=== PATIENT | female | born 1955 | race African-American/Black ===

== ENCOUNTER 2018-10-04 21:50 | Inpatient (IN) | payer OTHER ==
--- OUTSIDE RECORDS SUMMARY | 2018-10-04 21:52 | XMS REPORT | Clinical Summary ---
:1955 Author Organization [facility] Address [address] [place] [address] Care Team Providers Name Role Phone Ted Wall MD Primary Care Provider Allergies Active Allergy Reactions Severity Noted Date Comments Dye 08/25/2017 Contrast dye Morphine 08/25/2017 Medications Medication Sig Dispensed Refills Start Date End Date Status aspirin (ECOTRIN) 81 MG TAKE 2 TABLETS 3 08/19/2017 Active enteric coated tablet (162 MG) BY MOUTH DAILY atenolol (TENORMIN) 50 Take 50 mg by 0 08/11/2017 Active MG tablet mouth every morning. atorvastatin (LIPITOR) Take 40 mg by 0 07/24/2017 Active 40 MG tablet mouth once daily. SYMBICORT 160-4.5 INHALE 2 PUFFS 0 08/07/2017 Active mcg/actuation inhaler PO BID clopidogrel (PLAVIX) 75 0 08/24/2017 Active mg tablet clonIDINE (CATAPRES) 0.1 TK 1 T PO TID 0 06/18/2017 Active MG tablet gabapentin (NEURONTIN) TK 1 C PO D 0 07/03/2017 Active 300 mg capsule cyclobenzaprine TAKE ONE (1) 0 07/30/2017 Active (FLEXERIL) 10 mg tablet TABLET BY MOUTH TWICE DAILY. hydrALAZINE (APRESOLINE) TK 1 T PO TID 1 05/25/2017 Active 50 MG tablet HYDROcodone-acetaminophe TAKE ONE (1) 0 07/30/2017 Active n (NORCO) 10-325 mg per TABLET BY MOUTH tablet FOUR TIMES DAILY. NOVOLOG 100 unit/mL INJECT 35 UNITS 3 06/03/2017 Active injection UNDER THE SKIN TID BEFORE EACH MEAL LANTUS 100 unit/mL INJECT 30 UNITS 0 06/04/2017 Active injection (vial) SQ BID olmesartan (BENICAR) 40 Take 40 mg by 0 07/27/2017 Active MG tablet mouth once daily. Active Problems Problem Noted Date Trigger finger, right middle finger 08/25/2017 Social History Tobacco Use Types Packs/Day Years Used Date Never Smoker Smokeless Tobacco: Never Used Alcohol Use Drinks/Week oz/Week Comments No Sex Assigned at Date Recorded Not on file Job Start Date Occupation Industry Not on file Not on file Not on file Travel History Travel Start Travel End No recent travel history available. Last Filed Vital Signs Not on file Plan of Treatment Health Maintenance Due Date Last Done Comments CERVICAL CANCER SCREENING 1974 BREAST CANCER SCREENING 2003 COLON CANCER SCREENING 2003 SHINGRIX VACCINE (1 of 2) 2003 ZOSTER VACCINE 2013 INFLUENZA VACCINE 06/02/2018 PNEUMOCOCCAL POLYSACCHARIDE VACCINE AGE 65 AND OVER 2018 PNEUMOCOCCAL-13 2018 Results Not on fileafter 10/03/2017 Insurance Payer Benefit Plan / Group Subscriber ID Type Phone Address [facility] xxxxxxxxx HMO ([place]) [address] [address] Advance Directives Patient has advance care planning documents on file. For more information, please contact:[place] [address]
[2018-10-04] MEDS ORDERED: ALBUTEROL 2.5 MG/3 ML NEB SOL ONE (22:51)
[2018-10-04] MEDS ORDERED: KETOROLAC 30 MG/ML INJ ONE (22:51)
[2018-10-04] MEDS ORDERED: FAMOTIDINE 20 MG/2 ML VIAL IV ONE (22:51)
[2018-10-04] MEDS ORDERED: NA CHLORIDE 0.9% 1,000 ML ONE (22:51)
[2018-10-04 22:55] LABS: Absolute Lymphocytes (CBC) 3.1 K/uL (0.7-4.9); Absolute Monocytes 0.7 K/uL (0.1-1.3); Absolute Neutrophil 3.3 K/uL (1.8-8.0); Basophils % 0.8 % (0-1.3); Eosinophils % 5.7 % (0-4.4); Lymphocytes % 40.8 % (15.3-44.8); MCH 26.7 pg (27.0-35.0); MPV 8.1 fL (7.6-11.3); RBC Red Blood Cell Count 5.01 M/uL (3.86-4.86)
[2018-10-04 22:56] LABS: Protime INR 1.14
[2018-10-04 23:11] LABS: ALT/SGPT 25 U/L (12-78); AST/SGOT 25 U/L (15-37); Albumin 3.4 g/dL (3.4-5.0); Alkaline Phosphatase 140 U/L (45-117); BUN Blood Urea Nitrogen 13 mg/dL (7-18); Bicarbonate 25 mmol/L (21-32); Bilirubin Direct < 0.1 mg/dL (0-0.2); Bilirubin Total 0.3 mg/dL (0.2-1.0); Glucose Level 152 mg/dL (74-106); Lipase 103 U/L (73-393); NT PRO-BNP 479 pg/mL (<125); Potassium 4.2 mmol/L (3.5-5.1); Protein, Total 7.2 g/dL (6.4-8.2); Sodium Level 136 mmol/L (136-145); Troponin (Emerg Dept Use Only) 0.04 ng/mL (0.0-0.045)
--- NOTE | 2018-10-05 00:36 | ER ---
Nurse's Notes [facility] Name: Jose F Esipnoza Age: 63 yrs Sex: Female : 1955 Arrival Date: 10/04/2018 Time: 21:51 Bed 26 Private MD: Ted Zendejas R Diagnosis: acute chest pain;shortness of breath;acute abdominal pain;large midline abdominal wall incisional seroma Presentation: 10/04 22:03 Presenting complaint: Patient states: Burning in chest that is worse after eating. Also aj reports nausea and vomiting. Transition of care: patient was not received from another setting of care. Onset of symptoms was October 02, 2018. Risk Assessment: Do you want to hurt yourself or someone else? Patient reports no desire to harm self or others. Initial Sepsis Screen: Does the patient meet any 2 criteria? No. Patient's initial sepsis screen is negative. Does the patient have a suspected source of infection? No. Patient's initial sepsis screen is negative. Care prior to arrival: None. 22:03 Method Of Arrival: Ambulatory aj 22:03 Acuity: QUANG 3 aj Triage Assessment: 22:04 General: Appears in no apparent distress. comfortable, Behavior is calm, cooperative, aj appropriate for age. Pain: Complains of pain in chest and epigastric area. Neuro: Level of Consciousness is awake, alert, obeys commands, Oriented to person, place, time, situation, Appropriate for age. Cardiovascular: Reports chest pain, nausea, Capillary refill < 3 seconds in bilateral fingers Patient's skin is warm and dry. Respiratory: Reports cough that is Airway is patent Respiratory effort is even, unlabored, Respiratory pattern is regular, symmetrical. GI: Reports epigastric pain, nausea, vomiting. Derm: Skin is intact, is healthy with good turgor, Skin is pink, warm \T\ dry. normal. Historical: - Allergies: 22:04 Iodinated Contrast Media - IV Dye; aj 22:04 Morphine; aj - Home Meds: 22:55 aspirin 81 mg Oral chew 1 tab once daily [Active]; atenolol 25 mg Oral tab 1 tab once mg2 daily [Active]; atorvastatin 40 mg Oral tab 1 tab once daily [Active]; clonidine HCl 0.1 mg Oral tab 1 tab 3 times per day [Active]; hydralazine 50 mg Oral tab [Active]; Lantus 100 unit/mL Sub-Q soln 30 unit twice a day [Active]; levalbuterol HCl inhalation [Active]; Novolog 100 unit/mL Sub-Q soln 35 unit three times a day [Active]; olmesartan Oral 1 tab [Active]; ondansetron HCl 4 mg Oral tab [Active]; Plavix 75 mg Oral tab 1 tab once daily [Active]; potassium chloride 10 mEq Oral cpER 1 cap 2 times per day [Active]; Tessalon Perles 100 mg Oral cap 1 cap 3 times per day [Active]; - PMHx: 22:04 Asthma; CVA; Diabetes - NIDDM; Hypertension; aj - PSHx: 22:04 Hysterectomy; Hernia repair; aj - Immunization history:: Adult Immunizations up to date. - Social history:: Smoking status: Patient/guardian denies using tobacco. - Ebola Screening: : Patient negative for fever greater than or equal to 101.5 degrees Fahrenheit, and additional compatible Ebola Virus Disease symptoms Patient denies exposure to infectious person Patient denies travel to an Ebola-affected area in the 21 days before illness onset No symptoms or risks identified at this time. - Family history:: not pertinent. - Hospitalizations: : No recent hospitalization is reported. Screenin:38 Abuse screen: Denies threats or abuse. Denies injuries from another. Nutritional mg2 screening: No deficits noted. Tuberculosis screening: No symptoms or risk factors identified. Fall Risk IV access (20 points). Assessment: 22:38 General: Appears in no apparent distress. comfortable, Behavior is calm, cooperative. mg2 Pain: Complains of pain in abdomen and chest and epigastric area Pain does not radiate. Pain currently is 7 out of 10 on a pain scale. Quality of pain is described as aching, Pain began gradually, 2-3 days ago. Is intermittent, Alleviated by medications, rest. Neuro: Level of Consciousness is awake, alert, obeys commands, Oriented to person, place, time, situation. Cardiovascular: Capillary refill < 3 seconds Patient's skin is warm and dry. Respiratory: Airway is patent Respiratory effort is even, unlabored, Respiratory pattern is regular, symmetrical, Breath sounds with wheezes bilaterally. GI: Abdomen is round non-distended, Reports lower abdominal pain, upper abdominal pain. : No signs and/or symptoms were reported regarding the genitourinary system. EENT: No deficits noted. Derm: Skin is intact, is healthy with good turgor, Skin is pink, warm \T\ dry. normal. Musculoskeletal: No deficits noted. Vital Signs: 22:04 BP 162 / 75; Pulse 89; Resp 22; Temp 98.9; Pulse Ox 100% on R/A; Weight 126.1 kg; aj Height 5 ft. 6 in. (167.64 cm); 23:12 BP 167 / 83; Pulse 63; Resp 18; Pulse Ox 100% on R/A; Pain 4/10; mg2 12/ 00:22 BP 159 / 78; Pulse 65; Resp 18; Pulse Ox 100% on R/A; Pain 0/10; mg2 / 22:04 Body Mass Index 44.87 (126.10 kg, 167.64 cm) ED Course: 10/04 21:51 Patient arrived in ED. am2 21:52 Ted Zendejas MD is Private Physician. am2 22:03 Rea Vieira, RN is Primary Nurse. aj 22:04 Triage completed. aj 22:04 Ilia Knowles MD is Attending Physician. wa 22:04 Arm band placed on left wrist. Patient placed in an exam room. aj 22:14 Benton Latif, ORLY is Primary Nurse. mg2 22:38 No provider procedures requiring assistance completed. Inserted saline lock: 20 gauge mg2 in left wrist, using aseptic technique. Blood collected. 22:40 Patient has correct armband on for positive identification. laboratory monitor on. Pulse mg2 ox on. NIBP on. Door closed. Warm blanket given. 22:51 XRAY Chest Pa And Lat (2 Views) In Process Unspecified. EDMS 22:52 CT Abd/Pelvis - Without Cont In Process Unspecified. EDMS 22:55 Patient maintains SpO2 saturation greater than 95% on room air. mg2 23:04 US Abdomen Limited In Process Unspecified. EDMS 12 00:33 Ted Zendejas MD is Hospitalizing Provider. wa 01:32 Patient admitted, IV remains in place. mg2 Administered Medications: 10/04 23:11 Drug: Pepcid 20 mg Route: IVP; Site: left wrist; mg2 10/05 00:22 Follow up: Response: No adverse reaction; Marked relief of symptoms mg2 10/04 23:11 Drug: TORadol 30 mg Route: IVP; Site: left wrist; mg2 10/05 00:22 Follow up: Response: No adverse reaction; Marked relief of symptoms mg2 10/04 23:12 Drug: NS 0.9% 1000 ml Route: IV; Rate: 1 bolus; Site: left wrist; mg2 10/05 00:22 Follow up: Response: No adverse reaction; IV Status: Completed infusion mg2 10/04 23:12 Drug: Albuterol 2.5 mg Route: Inhalation; mg2 10/05 00:21 Follow up: Response: No adverse reaction; Marked relief of symptoms mg2 Outcome: 00:35 Decision to Hospitalize by Provider. wa 01:32 Admitted to Med/surg accompanied by tech, via stretcher, room 230, with oxygen, with mg2 chart, Report called to ORLY Torres 01:32 Condition: stable 01:32 Instructed on the need for admit, Demonstrated understanding of instructions. 01:32 Patient left the ED. mg2 Signatures: Dispatcher [employer] EDRea Naqvi, Rea Mclean RN am2 Ilia Knowles MD MD wa Gardose, Michele, RN RN mg2
--- NOTE | 2018-10-05 00:36 | EDPHYS ---
Physician Documentation [facility] Name: Jose F Espinoza Age: 63 yrs Sex: Female : 1955 Arrival Date: 10/04/2018 Time: 21:51 Bed 26 Private MD: Ted Zendejas R ED Physician Ilia Knowles HPI: 10/05 00:00 This 63 yrs old Black Female presents to ER via Ambulatory with complaints of Chest wa Pain. 00:00 The patient or guardian reports chest pain that is located primarily in the substernal wa area, epigastric area, L side. Onset: 2 day(s) ago, wax and wane. The pain does not radiate. Associated signs and symptoms: Pertinent positives: abdominal pain, nausea, vomiting, Pertinent negatives: diaphoresis, dizziness. The chest pain is described as burning. Duration: The patient or guardian reports a single episode, that is still ongoing, and unchanged, wax and wane. Modifying factors: The symptoms are alleviated by nothing. the symptoms are aggravated by nothing. Severity of pain: At its worst the pain was moderate in the emergency department the pain is unchanged. The patient has not experienced similar symptoms in the past. The patient has not recently seen a physician. also complain of "knot" on stomach wall. Historical: - Allergies: 10/04 22:04 Iodinated Contrast Media - IV Dye; aj 22:04 Morphine; aj - Home Meds: 22:55 aspirin 81 mg Oral chew 1 tab once daily [Active]; atenolol 25 mg Oral tab 1 tab once mg2 daily [Active]; atorvastatin 40 mg Oral tab 1 tab once daily [Active]; clonidine HCl 0.1 mg Oral tab 1 tab 3 times per day [Active]; hydralazine 50 mg Oral tab [Active]; Lantus 100 unit/mL Sub-Q soln 30 unit twice a day [Active]; levalbuterol HCl inhalation [Active]; Novolog 100 unit/mL Sub-Q soln 35 unit three times a day [Active]; olmesartan Oral 1 tab [Active]; ondansetron HCl 4 mg Oral tab [Active]; Plavix 75 mg Oral tab 1 tab once daily [Active]; potassium chloride 10 mEq Oral cpER 1 cap 2 times per day [Active]; Tessalon Perles 100 mg Oral cap 1 cap 3 times per day [Active]; - PMHx: 22:04 Asthma; CVA; Diabetes - NIDDM; Hypertension; aj - PSHx: 22:04 Hysterectomy; Hernia repair; aj - Immunization history:: Adult Immunizations up to date. - Social history:: Smoking status: Patient/guardian denies using tobacco. - Ebola Screening: : Patient negative for fever greater than or equal to 101.5 degrees Fahrenheit, and additional compatible Ebola Virus Disease symptoms Patient denies exposure to infectious person Patient denies travel to an Ebola-affected area in the 21 days before illness onset No symptoms or risks identified at this time. - Family history:: not pertinent. - Hospitalizations: : No recent hospitalization is reported. ROS: 10/05 00:02 Constitutional: Negative for fever, chills, and weight loss, Eyes: Negative for injury, wa pain, redness, and discharge, ENT: Negative for injury, pain, and discharge, Neck: Negative for injury, pain, and swelling, Back: Negative for injury and pain, : Negative for injury, bleeding, discharge, and swelling, MS/Extremity: Negative for injury and deformity, Skin: Negative for injury, rash, and discoloration, Neuro: Negative for headache, weakness, numbness, tingling, and seizure, Psych: Negative for depression, anxiety, suicide ideation, homicidal ideation, and hallucinations. Cardiovascular: Positive for chest pain, Negative for edema, orthopnea, palpitations, paroxysmal nocturnal dyspnea. Respiratory: Positive for wheezing, Negative for cough. Abdomen/GI: Positive for abdominal pain. All other systems are negative. Exam: 00:03 Constitutional: This is a well developed, well nourished patient who is awake, alert, wa and in no acute distress. Head/Face: Normocephalic, atraumatic. Eyes: Pupils equal round and reactive to light, extra-ocular motions intact. Lids and lashes normal. Conjunctiva and sclera are non-icteric and not injected. Cornea within normal limits. Periorbital areas with no swelling, redness, or edema. ENT: Nares patent. No nasal discharge, no septal abnormalities noted. Tympanic membranes are normal and external auditory canals are clear. Oropharynx with no redness, swelling, or masses, exudates, or evidence of obstruction, uvula midline. Mucous membranes moist. Neck: Trachea midline, no thyromegaly or masses palpated, and no cervical lymphadenopathy. Supple, full range of motion without nuchal rigidity, or vertebral point tenderness. No Meningismus. Chest/axilla: Normal chest wall appearance and motion. Nontender with no deformity. No lesions are appreciated. Back: No spinal tenderness. No costovertebral tenderness. Full range of motion. Skin: Warm, dry with normal turgor. Normal color with no rashes, no lesions, and no evidence of cellulitis. MS/ Extremity: Pulses equal, no cyanosis. Neurovascular intact. Full, normal range of motion. Neuro: Awake and alert, GCS 15, oriented to person, place, time, and situation. Cranial nerves II-XII grossly intact. Motor strength 5/5 in all extremities. Sensory grossly intact. Cerebellar exam normal. Normal gait. Psych: Awake, alert, with orientation to person, place and time. Behavior, mood, and affect are within normal limits. 00:03 Cardiovascular: Rate: normal, Rhythm: regular, Pulses: no pulse deficits are appreciated, Heart sounds: normal, Edema: is not appreciated, JVD: is not appreciated. 00:03 Respiratory: the patient does not display signs of respiratory distress, Respirations: normal, Breath sounds: wheezing: expiratory that is mild, is heard diffusely. 00:03 Abdomen/GI: Inspection: abdomen appears normal, Bowel sounds: normal, Palpation: soft, in all quadrants, moderate abdominal tenderness, in the epigastric area and R side mid abd wall. Vital Signs: 10/04 22:04 BP 162 / 75; Pulse 89; Resp 22; Temp 98.9; Pulse Ox 100% on R/A; Weight 126.1 kg; aj Height 5 ft. 6 in. (167.64 cm); 23:12 BP 167 / 83; Pulse 63; Resp 18; Pulse Ox 100% on R/A; Pain 4/10; mg2 10/05 00:22 BP 159 / 78; Pulse 65; Resp 18; Pulse Ox 100% on R/A; Pain 0/10; mg2 10/04 22:04 Body Mass Index 44.87 (126.10 kg, 167.64 cm) aj MDM: 10/04 22:04 Patient medically screened. tn 10/05 00:04 Differential diagnosis: acute myocardial infarction, acute pericarditis, coronary wa artery disease congestive heart failure cholecystitis, Cholelithiasis costochondritis, gastritis, pancreatitis, peptic ulcer disease. 00:27 Data reviewed: vital signs, nurses notes, lab test result(s), EKG, radiologic studies. tn Test interpretation: by ED physician or midlevel provider: EKG: HR 67. multiple PVCs> LAD. incomplete RBBB. lateral T wave inversions noted. consider ischemia. nml troponin. elevated glucose. nml CXR. CT abd/pelvis: large midline incisional seroma 4.9x7.9x13 cm. . Response to treatment: the patient's symptoms have mildly improved after treatment. Physician consultation: Ted Zendejas MD. Admission orders: after a detailed discussion of the patient's condition and case, the admit orders are written by me. ED course: abd pain improved. however on reassessment pt noted wheezing and mildly SOB even after a neb treatment. consider PE. pt allergic to IV dye. will admit for further eval. will obtain VQ scan. will obtain gen surg consult for abd wall seroma. 10/04 22:28 Order name: BMP; Complete Time: 23:42 tn 10/04 22:28 Order name: CBC with Diff; Complete Time: 23:42 tn 10/04 22:28 Order name: Hepatic Function; Complete Time: 23:43 tn 10/04 22:28 Order name: Lipase; Complete Time: 23:43 tn 10/04 22:28 Order name: NT PRO-BNP; Complete Time: 23:43 tn 10/04 22:28 Order name: PT-INR; Complete Time: 23:43 tn 10/04 22:28 Order name: XRAY Chest Pa And Lat (2 Views) tn 10/04 22:28 Order name: Troponin (emerg Dept Use Only); Complete Time: 23:43 tn 10/04 22:28 Order name: US Abdomen Limited tn 10/04 22:28 Order name: CT Abd/Pelvis - Without Cont tn 10/04 22:28 Order name: EKG; Complete Time: 22:29 tn 10/04 22:28 Order name: Cardiac monitoring; Complete Time: 22:38 tn 10/04 22:28 Order name: EKG - Nurse/Tech; Complete Time: 22:38 tn 10/04 22:28 Order name: IV Saline Lock; Complete Time: 22:38 tn 10/04 22:28 Order name: Labs collected and sent; Complete Time: 22:38 tn 10/04 22:28 Order name: O2 Sat Monitoring; Complete Time: 22:38 tn Administered Medications: 10/04 23:11 Drug: Pepcid 20 mg Route: IVP; Site: left wrist; mg2 10/05 00:22 Follow up: Response: No adverse reaction; Marked relief of symptoms mg2 10/04 23:11 Drug: TORadol 30 mg Route: IVP; Site: left wrist; mg2 10/05 00:22 Follow up: Response: No adverse reaction; Marked relief of symptoms mg2 10/04 23:12 Drug: NS 0.9% 1000 ml Route: IV; Rate: 1 bolus; Site: left wrist; mg2 10/05 00:22 Follow up: Response: No adverse reaction; IV Status: Completed infusion mg2 10/04 23:12 Drug: Albuterol 2.5 mg Route: Inhalation; mg2 10/05 00:21 Follow up: Response: No adverse reaction; Marked relief of symptoms mg2 Disposition: 10/05/18 00:35 Hospitalization ordered by Ted Zendejas for Inpatient Admission. Preliminary diagnosis are acute chest pain, shortness of breath, acute abdominal pain, large midline abdominal wall incisional seroma. - Bed requested for Telemetry/MedSurg (Inpatient). - Status is Inpatient Admission. mg2 - Condition is Stable. - Problem is an acute exacerbation. - Symptoms have improved. UTI on Admission? No Signatures: Dispatcher [employer] EDMS Rea Vieira RN RN aj Garcia, Cindy, RN RN Ilia Knowles MD MD wa Gardose, Michele, RN RN mg2 Corrections: (The following items were deleted from the chart) 00:46 00:35 Hospitalization Ordered by Ted Zendejas MD for Inpatient Admission. Preliminary cg diagnosis is acute chest pain; shortness of breath; acute abdominal pain; large midline abdominal wall incisional seroma. Bed requested for Telemetry/MedSurg (Inpatient). Status is Inpatient Admission. Condition is Stable. Problem is an acute exacerbation. Symptoms have improved. UTI on Admission? No. tn 00:52 00:46 10/05/2018 00:35 Hospitalization Ordered by Ted Zendejas MD for Inpatient cg Admission. Preliminary diagnosis is acute chest pain; shortness of breath; acute abdominal pain; large midline abdominal wall incisional seroma. Bed requested for Telemetry/MedSurg (Inpatient). Status is Inpatient Admission. Condition is Stable. Problem is an acute exacerbation. Symptoms have improved. UTI on Admission? No. cg 01:32 00:52 10/05/2018 00:35 Hospitalization Ordered by Ted Zendejas MD for Inpatient mg2 Admission. Preliminary diagnosis is acute chest pain; shortness of breath; acute abdominal pain; large midline abdominal wall incisional seroma. Bed requested for Telemetry/MedSurg (Inpatient). Status is Inpatient Admission. Condition is Stable. Problem is an acute exacerbation. Symptoms have improved. UTI on Admission? No. cg
[2018-10-05] MEDS ORDERED: ONDANSETRON 4 MG/2 ML VIAL IV PRN (00:44)
[2018-10-05] MEDS ORDERED: ACETAMINOPHEN 500 MG TAB PO PRN (00:44)
[2018-10-05 01:46] VITALS: BMI 46.2
--- NOTE | 2018-10-05 06:28 | RAD REPORT ---
EXAM DESCRIPTION: CT - Abdomen Pelvis Wo Contrast - 10/04/2018 10:52 pm CLINICAL HISTORY: Abdominal pain. A preliminary report was provided at the time of the study and reviewed prior to final report. COMPARISON: None. TECHNIQUE: Axial [address] imaging of the abdomen and pelvis was performed without IV contrast. No IV contrast was given because of allergy, abnormal renal function, patient refusal or physician re quest. No oral contrast administered. All CT scans are performed using dose optimization technique as appropriate and may include automated exposure control or mA/KV adjustment according to patient size. FINDINGS: No suspicious findings in the lung bases. The liver, spleen and pancreas show no suspicious findings on non-contrast imaging. Gallbladder and b iliary tree are also without suspicious finding. No hydronephrosis or suspicious renal mass. No significant adrenal finding. Isodense renal masses an d pyelonephritis cannot be excluded in the absence of IV contrast. Urinary bladder is contracted. [place] javed is absent. Ovaries are absent or atrophic. No adnexal mass. No dilated bowel loops or bowel wall thickening. No free air, free fluid or inflammatory stranding. N o peritoneal or retroperitoneal mass or bulky lymphadenopathy. No omental thickening. There is a 13 x 9 x 5 cm oval fluid collection in the deep subcutaneous fatty tissues of the midline abdomen. This is at the umbilical level abutting the anterior abdominal wall. No intraperitoneal exte nsion. This has a thick rim. A small soft tissue mass component is seen along the anterior right infe rior margin. This is mostly homogeneous fluid attenuation. No air density. There is an nonspecific st randing in the subcutaneous fat superior and right lateral to the mass. This is most likely a chronic postoperative seroma. The apparent solid component could be contracted blood products. No intraperit de or retroperitoneal fluid collections. No suspicious bony findings. Dense vascular calcifications are present. IMPRESSION: A 13 x 9 x 5 cm fluid collection is seen in the deep subcutaneous fatty tissues at the u mbilicus. No intraperitoneal extension. Chronic postoperative seroma is favored over abscess. No acute intraperitoneal or retroperitoneal process. Full assessment is limited is the absence of IV contrast.
--- NOTE | 2018-10-05 06:33 | RAD REPORT ---
EXAM DESCRIPTION: RAD - Chest Pa And Lat (2 Views) - 10/04/2018 10:53 pm CLINICAL HISTORY: Chest pain COMPARISON: October 2017 TECHNIQUE: PA and lateral views of the chest were obtained. FINDINGS: The lungs are normal volume. No focal mass or consolidation. Interstitial markings are fra ctionally increased over the comparison study. A minimal interstitial edema or infiltrate would be po ssible. Heart size is normal and central vasculature is within normal limits. No pleural effusion or pneumothorax seen. No acute bony finding noted. No aortic abnormality. IMPRESSION: No focal mass or consolidation. Minimal increase in interstitial markings could be a mild infiltrate or edema.
--- NOTE | 2018-10-05 06:36 | RAD REPORT ---
EXAM DESCRIPTION: US - Abdomen Exam Limited - 10/04/2018 11:04 pm CLINICAL HISTORY: Abdominal pain COMPARISON: Ultrasound 2015. FINDINGS: No mobile gallstones or significant quantity of sludge identifiable. The fundus there is a 7 millimeter echogenic focus adherent to the wall. No posterior acoustic shadowing. This is probably a gallbladder polyp. There is no wall thickening or pericholecystic fluid. No common duct stone or biliary tree dilatation identified. IMPRESSION: No gallstones confirmed and no measurable quantity of sludge. Approximately 7 millimeter echogenic focus near the fundus. This is most likely a polyp and has not c hanged in size since 2015.
--- NOTE | 2018-10-05 07:06 | EKG ---
Test Date: 2018-10-04 Test Time: 22:20:05 Television Presenter: MEASUREMENT RESULTS: Intervals: Rate: 67 [place]: 170 QRSD: 100 QT: 452 QTc: 477 [place]: P: 49 [place]: 170 QRS: -32 T: 167 INTERPRETIVE STATEMENTS: Sinus rhythm with frequent premature ventricular complexes Left axis deviation Voltage criteria for left ventricular hypertrophy T wave abnormality, consider lateral ischemia Prolonged QT Abnormal ECG Compared to ECG 10/24/2017 21:32:37 Ventricular premature complex(es) now present T-wave abnormality now present Possible ischemia now present Prolonged QT interval now present Sinus tachycardia no longer present Early repolarization no longer present Myocardial infarct finding no longer present Electronically Signed On 10-05-18 07:05:18 SEAM HAMMERER by Fabrice Clark
[2018-10-05] MEDS ORDERED: GLUCAGON 1 MG/VIAL IM PRN (08:29)
[2018-10-05] MEDS ORDERED: D50W 25 GM/50 ML SYRINGE IV PRN (08:29)
[2018-10-05] MEDS ORDERED: ASPIRIN EC 81 MG TAB PO SCH (09:00)
[2018-10-05] MEDS: FUROSEMIDE 40 MG TABLET PO SCH (09:57)
[2018-10-05] MEDS: cloNIDine HCl 0.1 MG TAB PO SCH ×3 (09:57→21:08)
[2018-10-05] MEDS: ASPIRIN 81 MG CHEWABLE TABLET PO SCH (09:57)
[2018-10-05] MEDS: INSULIN GLARGINE 100 UNITS/ML SQ SCH ×2 (09:57→21:09)
[2018-10-05] MEDS: CLOPIDOGREL 75 MG TABLET PO SCH (09:58)
[2018-10-05] MEDS: ATENOLOL 25 MG TAB PO SCH (09:58)
[2018-10-05] MEDS: INSULIN -REGULAR HUMAN 50 UNIT/0.5 ML ML SQ SCH ×3 (11:52→21:09)
[2018-10-05 12:42] LABS: Urine Appearance CLEAR; Urine Blood NEGATIVE (NEG); Urine Color DK YELLOW; Urine Glucose NEGATIVE (NEG); Urine Protein 1+ (NEG); Urine Specific Gravity >=1.030 (1.005-1.030); Urine pH 5.5 (5.0-7.0)
[2018-10-05 12:54] LABS: Urine Microscopic Reflex ORDER UMIC
[2018-10-05 13:22] LABS: Urine Bacteria <20 /HPF (<20); Urine Culture Reflex Order NOT NEEDED; Urine RBC <5 /HPF (NONE SEEN)
[2018-10-05 13:23] LABS: Calcium Oxalate Crystals- Ur FEW (NONE SEEN)
[2018-10-05] MEDS: HYDRALAZINE HCL 25 MG TABLET PO SCH ×3 (13:40→21:08)
[2018-10-05 13:56] LABS: Urine Bilirubin POSITIVE (NEG)
[2018-10-05] MEDS: ALBUTEROL 2.5 MG/3 ML NEB SOL NEB SCH ×2 (14:07→20:35)
[2018-10-05 16:50] VITALS: O2SAT 98
[2018-10-05] MEDS ORDERED: ATORVASTATIN 40 MG TAB PO SCH (21:00)
[2018-10-06] MEDS: ALBUTEROL 2.5 MG/3 ML NEB SOL NEB SCH ×2 (02:00→08:09)
--- NOTE | 2018-10-06 03:09 | HP ---
Date of Admission: 10/04/2018 Chief Complaint: Heartburn after eating, nausea, and vomiting. History Of Present Illness: A 63-year-old female was brought to the emergency room because of epigas tric burning pain after eating. The patient had workup done in the emergency room. The patient had no evidence of myocardial injury. However, her CAT scan showed seroma. The patient claims that she had that before and it was drained. The patient denies any history of diarrhea. No history of incre ased shortness of breath. Past Medical History: Positive for type 2 diabetes requiring insulin, history of CVA, history of ast hma, hypertension. Past Surgical History: Positive for hernia repair and hysterectomy. Allergies: IODINE DYE AND MORPHINE. Home Medicines: Please refer to the chart. Physical Examination: General: Revealed 63-year-old female, alert for her age. HEENT: Negative. Neck: Supple. JVD negative. Chest: Few scattered wheezes. Heart: Regular. Abdomen: Mild epigastric tenderness. Bowel sounds present. Extremities: No edema. Laboratory: White count normal. CAT scan of abdomen, evidence of seroma. Ultrasound of the abdomen negative. Chest x-ray showed no evidence of pneumonia, increased interstitial markings noted. Assessment: 1.Nausea, vomiting, and epigastric burning, possible peptic ulcer disease versus gastritis. 2.Seroma, recurrent. 3.Asthma. 4.Type 2 diabetes requiring insulin. 5.Hypertension. 6.Old cerebrovascular accident. Plan: The patient looks stable and surgical consultation has been asked for to see what to do with t he seroma. The patient meanwhile will be restarted on her medications and insulin sliding will be in stituted. She will be started on Protonix. KATY/YOSELYN Voice ID: [id number]
[2018-10-06 06:51] LABS: Absolute Lymphocytes (CBC) 2.5 K/uL (0.7-4.9); Absolute Monocytes 0.5 K/uL (0.1-1.3); Absolute Neutrophil 2.4 K/uL (1.8-8.0); Basophils % 0.5 % (0-1.3); Eosinophils % 5.9 % (0-4.4); Hematocrit 35.4 % (36.0-45.0); Lymphocytes % 42.7 % (15.3-44.8); MCH 26.4 pg (27.0-35.0); MCV 79.5 fL (80-100); MPV 7.9 fL (7.6-11.3); Monocytes % 9.1 % (3.3-12.3); RBC Red Blood Cell Count 4.45 M/uL (3.86-4.86)
[2018-10-06] MEDS ORDERED: PANTOPRAZOLE 40MG TABLET PO SCH (07:30)
[2018-10-06 07:31] LABS: Potassium 4.1 mmol/L (3.5-5.1)
--- NOTE | 2018-10-06 08:36 | CON ---
Date of Consultation: 10/04/2018 Diagnosis: Chest pain. History Of Present Illness: This is the case of a 63-year-old patient, came to us with epigastric an d chest pain. The patient was admitted with the diagnosis of chest pain and possible also gallbladde r disease. The patient states that she has also burning sensation in the epigastric region, sometime s it goes to her back but also goes to her left chest. There is no dysuria, hematuria, hematochezia, or melena. No recent traveling out of the country. No family members are sick at home. She was al so found on the CAT scan to have a fluid collection, seroma, that she claims has been addressed sever al times, but it happened once again, seroma in abdominal wall after hernia repair many ye ars ago. Surgical consult was obtained to address 2 issues; the gallbladder disease if any and the a bdominal wall seroma. Past Medical History: Asthma, CVA, obesity, hyp-ghenlef-pqicheoci diabetes, hypertension. Past Surgical History: Includes hysterectomy and hernia repair. The patient has a midline incision done a long time ago. Social Habits: She does not smoke. She does not drink alcohol. Allergies: IODINE IV AND MORPHINE. Family History: Noncontributory. Review of Systems: Ten points otherwise unremarkable. Physical Examination: General: The patient is awake and alert. HEENT: Pupils are equal and reactive. Anicteric. Neck: Supple. Chest: Clear. Abdomen: Soft and depressible. No guarding or rebound. The patient has a midline incision. No darin lulitis. No hernia is palpated. the CAT scan shows but no cellulitis present in that are a to suggest any cellulitis or infection. Pelvic/Rectal: Deferred. Extremities: Good capillary refill. Laboratory Data: Blood work shows WBC count of 7.5, INR of 1.4, GFR 60, alkaline phosphatase 140. C AT scan of abdomen and pelvis is interpreted by Dr. Acosta as a 13 x 9 x 5 cm seroma; the patient de scribed as being addressed before twice, but recurred once again. The exact surgery done before is u nknown. The patient also has an ultrasound which shows no gallstones and no sludge, although the pos sibility of a polyp is there, though has not changed since 2015. Assessment: This is a 63-year-old patient, came here with chest pain, also epigastric pain, morbid o besity. There are few findings on her. The ultrasound does not show any acute process or gallstones or sludge; maybe something a polyp in that area, found in 2015 apparently and has not changed. Obvi ously, for us to have a complete biopsy of that, we will have the gallbladder to be removed electivel y. If an acute process is wanted to be ruled out, then a HIDA scan might help just to see the functi on, not to clarify the findings of 2015. Concerning the abdominal wall, she has a chronic seroma, it has been drained several times. Apparently, she had surgery many years ago, hernia surgery; the exa ct intervention is unknown by us; I do not know if she has mesh there or not. Apparently, it has bee n drained several times. If she is going to address that issue electively, then she may need a debri gayla of that cavity and most likely a wound VAC in that area, although that should not be the reaso n why she is here during this admission. So, she was advised to follow up in my office for that. At this moment, no surgical intervention is planned. I suggested the patient have a armament aircraft mechanic consult, she believes Dr. Interiano did an endoscopy and colonoscopy on her in the past, she does not k now the details. I advised her to check on that to rule out any peptic ulcer disease. KYARA/YOSELYN Voice ID: [id number] Report ID: [id number]
[2018-10-06] MEDS ORDERED: POTASSIUM CL SA 10 MEQ TAB PO SCH (09:00)
[2018-10-06] MEDS: ATENOLOL 25 MG TAB PO SCH (09:15)
[2018-10-06] MEDS: HYDRALAZINE HCL 25 MG TABLET PO SCH (09:16)
[2018-10-06] MEDS: CLOPIDOGREL 75 MG TABLET PO SCH (09:16)
[2018-10-06] MEDS: FUROSEMIDE 40 MG TABLET PO SCH (09:16)
[2018-10-06] MEDS: ASPIRIN 81 MG CHEWABLE TABLET PO SCH (09:17)
[2018-10-06] MEDS: cloNIDine HCl 0.1 MG TAB PO SCH (09:17)
[2018-10-06] MEDS: INSULIN -REGULAR HUMAN 50 UNIT/0.5 ML ML SQ SCH (09:18)
[2018-10-06] MEDS: INSULIN GLARGINE 100 UNITS/ML SQ SCH (09:18)
[2018-10-06 09:20] VITALS: BP 135/105
--- NOTE | 2018-10-06 10:11 | EKG ---
Test Date: 2018-10-06 Test Time: 08:24:28 Electronic Gluer: KAREN MEASUREMENT RESULTS: Intervals: Rate: 80 [place]: 166 QRSD: 108 QT: 420 QTc: 484 [place]: P: 41 [place]: 166 QRS: -35 T: 118 INTERPRETIVE STATEMENTS: Normal sinus rhythm Left axis deviation Left ventricular hypertrophy with repolarization abnormality Abnormal ECG Compared to ECG 10/04/2018 22:20:05 Ventricular premature complex(es) no longer present Prolonged QT interval no longer present Electronically Signed On 10-06-18 10:11:11 PERCUSSION INSTRUMENT REPAIRER by Grover Hines
[2018-10-06 10:21] VITALS: TEMP 97.2
--- NOTE | 2018-10-06 12:33 | PN ---
Date of Progress Note: 10/06/2018 The patient does not have any symptoms today and she wants to go home. Surgical recommendations note d. The patient does not have any burning pain anymore with Protonix. She will be given prescription for that. She will be followed up in the office. If the symptoms do not go away completely or recu r, the patient will have endoscopy. The patient understands this. At this point, I will follow her wish and discharge her and follow up in the office. KATY/YOSELYN Voice ID: [id number] Report ID: [id number]
== END 2018-10-06 10:30 | disposition home or self-care (01) | DRG 313 ==
LOC: ER 21:50 → ERHOLD 10-05 00:42 → 2ND 10-05 01:06
PROVIDERS: ADMIT Internal Medicine; ATTEND Internal Medicine
DX: R07.9 Chest pain, unspecified (principal); K91.873 Postprocedural seroma of a digestive system organ or structure following other procedure; Z68.41 Body mass index [BMI] 40.0-44.9, adult; R12 Heartburn; J45.909 Unspecified asthma, uncomplicated; E11.9 Type 2 diabetes mellitus without complications; Z79.4 Long term (current) use of insulin; I10 Essential (primary) hypertension; Z86.73 Personal history of transient ischemic attack (TIA), and cerebral infarction without residual deficits; Z88.5 Allergy status to narcotic agent; Z91.048 Other nonmedicinal substance allergy status; Y83.8 Other surgical procedures as the cause of abnormal reaction of the patient, or of later complication, without mention of misadventure at the time of the procedure; Y73.3 Surgical instruments, materials and gastroenterology and urology devices (including sutures) associated with adverse incidents; E66.01 Morbid (severe) obesity due to excess calories; R11.2 Nausea with vomiting, unspecified
CPT/HCPCS: 36415; 71046; 74176; 76705; 80048; 80076; 81003; 81015; 82962; 83690; 83880; 84484; 85025; 85610; 93005; 94640; 96361; 96374; 96375; 99285; J7030

== ENCOUNTER 2018-12-23 14:36 | Observation (INO) | payer OTHER ==
--- OUTSIDE RECORDS SUMMARY | 2018-12-23 15:23 | XMS REPORT | Clinical Summary ---
:1955 Author Organization [facility] Address [address] [place] [address] Care Team Providers Name Role Phone Ted Wall MD Primary Care Provider Allergies Active Allergy Reactions Severity Noted Date Comments Iodinated Contrast- Oral And Iv Dye 11/11/2018 Morphine 08/25/2017 Medications Medication Sig Dispensed Refills Start Date End Date Status aspirin (ECOTRIN) 81 TAKE 2 3 08/19/2017 Active MG enteric coated TABLETS (162 tablet MG) BY MOUTH DAILY as of 11/11/2018 this med is on hold per patient atenolol (TENORMIN) Take 50 mg by 0 08/11/2017 Active 50 MG tablet mouth 2 (two) times a day. atorvastatin Take 40 mg by 0 07/24/2017 Active (LIPITOR) 40 MG mouth once tablet daily. SYMBICORT 160-4.5 INHALE 2 0 08/07/2017 Active mcg/actuation inhaler PUFFS PO BID clopidogrel (PLAVIX) Take 75 mg by 0 08/24/2017 Active 75 mg tablet mouth daily. As of 11/11/2018 this med is on hold per patient clonIDINE (CATAPRES) TK 1 T PO TID 0 06/18/2017 Active 0.1 MG tablet cyclobenzaprine TAKE ONE (1) 0 07/30/2017 Active (FLEXERIL) 10 mg TABLET BY tablet MOUTH TWICE DAILY. hydrALAZINE TK 1 T PO TID 1 05/25/2017 Active (APRESOLINE) 50 MG tablet HYDROcodone-acetamino TAKE ONE (1) 0 07/30/2017 Active phen (NORCO) 10-325 TABLET BY mg per tablet MOUTH FOUR TIMES DAILY. NOVOLOG 100 unit/mL INJECT 35 3 06/03/2017 Active injection UNITS UNDER THE SKIN TID BEFORE EACH MEAL LYRICA 75 mg capsule Take 1 0 10/20/2018 Active capsule by mouth 2 (two) times a day as needed. levalbuterol Inhale 0.31 0 Active (XOPENEX) 0.31 mg/3 mg 3 (three) mL nebulizer solution times a day. BASAGLAR KWIKPEN Inject 40 0 10/28/2018 Active U-100 INSULIN 100 Units under unit/mL (3 mL) the skin 2 injection (pen) (two) times a day. levalbuterol (XOPENEX Inhale 1-2 0 Active HFA) 45 mcg/actuation puffs every 4 inhaler (four) hours as needed for wheezing. lactulose (CHRONULAC) Take 30 mL by 3 10/12/2018 Active 10 gram/15 mL mouth every solution other day. gabapentin TK 1 C PO D 0 07/03/2017 Discontinued (NEURONTIN) 300 mg 9 capsule LANTUS 100 unit/mL INJECT 30 0 06/04/2017 Discontinued injection (vial) UNITS SQ BID 9 olmesartan (BENICAR) Take 40 mg by 0 07/27/2017 Discontinued 40 MG tablet mouth once 9 daily. metoclopramide Take 1 tablet 120 tablet 0 11/16/2018 (REGLAN) 10 MG tablet (10 mg total) 9 by mouth 4 (four) times a day for 30 days. Active Problems Problem Noted Date Periumbilical abdominal pain 11/11/2018 Trigger finger, right middle finger 08/25/2017 Encounters Date Type Specialty Care Team Description 11/16/2018 Orders Only General Surgery Purvi Arrieta MA 11/16/2018 Telephone General Surgery Gisele Wilson MA 11/11/2018 - Emergency General Internal Vicky Dangelo Periumbilical abdominal pain (Primary Dx); 11/12/2018 Medicine MD Nigel Abdominal wall seroma, subsequent encounter Flako Aivla DO 11/11/2018 Travel after 12/22/2017 Social History Tobacco Use Types Packs/Day Years Used Date Never Smoker Smokeless Tobacco: Never Used Alcohol Use Drinks/Week oz/Week Comments No Sex Assigned at Date Recorded Not on file Job Start Date Occupation Industry Not on file Not on file Not on file Travel History Travel Start Travel End No recent travel history available. Last Filed Vital Signs Vital Sign Reading Time Taken Blood Pressure 178/81 11/12/2018 4:06 PM PROCESS TREATER Pulse 72 11/12/2018 4:06 PM PROCESS TREATER Temperature 37.2 C (98.9 F) 11/12/2018 4:06 PM PROCESS TREATER Respiratory Rate 17 11/12/2018 4:06 PM PROCESS TREATER Oxygen Saturation 98% 11/12/2018 4:06 PM PROCESS TREATER Inhaled Oxygen Concentration - - Weight 127 kg (280 lb) 11/11/2018 11:06 AM PROCESS TREATER Height 167.6 cm (5' 6") 11/11/2018 11:06 AM PROCESS TREATER Body Mass Index 45.19 11/11/2018 11:06 AM PROCESS TREATER Plan of Treatment Health Maintenance Due Date Last Done Comments CERVICAL CANCER SCREENING 1974 BREAST CANCER SCREENING 2003 COLON CANCER SCREENING 2003 SHINGLES VACCINES (#1) 2003 INFLUENZA VACCINE 06/02/2018 65+ PNEUMOCOCCAL VACCINE (2 of 2 - PPSV23) 2018 10/05/2017 PNEUMOCOCCAL POLYSACCHARIDE VACCINE AGE 65 AND OVER Completed 10/05/2017 Procedures Procedure Name Priority Date/Time Associated Comments Diagnosis US NEEDLE ASPIRATION Routine 11/12/2018 2:44 Results for this PM PROCESS TREATER procedure are in the results section. GRAM STAIN Routine 11/12/2018 2:15 Results for this PM PROCESS TREATER procedure are in the results section. ANAEROBIC CULTURE Routine 11/12/2018 2:15 Results for this PM PROCESS TREATER procedure are in the results section. AEROBIC CULTURE Routine 11/12/2018 2:15 Results for this PM PROCESS TREATER procedure are in the results section. POC GLUCOSE Routine 11/12/2018 11:32 Results for this AM PROCESS TREATER procedure are in the results section. POC GLUCOSE Routine 11/12/2018 5:38 Results for this AM PROCESS TREATER procedure are in the results section. PARTIAL THROMBOPLASTIN Routine 11/12/2018 4:36 Results for this TIME (PTT) AM PROCESS TREATER procedure are in the results section. PROTHROMBIN TIME WITH Routine 11/12/2018 4:36 Results for this INR AM PROCESS TREATER procedure are in the results section. HEMOGLOBIN A1C Routine 11/12/2018 4:36 Results for this AM PROCESS TREATER procedure are in the results section. ESTIMATED GFR Routine 11/12/2018 4:36 Results for this AM PROCESS TREATER procedure are in the results section. COMPREHENSIVE METABOLIC Routine 11/12/2018 4:36 Results for this PANEL AM PROCESS TREATER procedure are in the results section. HC COMPLETE BLD COUNT Routine 11/12/2018 4:36 Results for this W/AUTO DIFF AM PROCESS TREATER procedure are in the results section. POC GLUCOSE Routine 11/11/2018 7:36 Results for this PM PROCESS TREATER procedure are in the results section. ALT (SGPT) STAT 11/11/2018 6:44 Results for this PM PROCESS TREATER procedure are in the results section. POTASSIUM LEVEL STAT 11/11/2018 6:44 Results for this PM PROCESS TREATER procedure are in the results section. AST (SGOT) STAT 11/11/2018 6:44 Results for this PM PROCESS TREATER procedure are in the results section. ALKALINE PHOSPHATASE STAT 11/11/2018 6:44 Results for this PM PROCESS TREATER procedure are in the results section. POC GLUCOSE Routine 11/11/2018 3:18 Results for this PM PROCESS TREATER procedure are in the results section. CT ABDOMEN PELVIS WO STAT 11/11/2018 2:16 Results for this CONTRAST PM PROCESS TREATER procedure are in the results section. LIPASE LEVEL STAT 11/11/2018 12:36 Results for this PM PROCESS TREATER procedure are in the results section. ESTIMATED GFR STAT 11/11/2018 12:36 Results for this PM PROCESS TREATER procedure are in the results section. URINALYSIS SCREEN AND Routine 11/11/2018 12:36 Results for this MICROSCOPY, WITH REFLEX PM PROCESS TREATER procedure are in TO CULTURE the results section. COMPREHENSIVE METABOLIC STAT 11/11/2018 12:36 Results for this PANEL PM PROCESS TREATER procedure are in the results section. HC COMPLETE BLD COUNT STAT 11/11/2018 12:36 Results for this W/AUTO DIFF PM PROCESS TREATER procedure are in the results section. GRAM STAIN Routine 11/11/2018 12:36 Results for this PM PROCESS TREATER procedure are in the results section. URINE CULTURE Routine 11/11/2018 12:36 Results for this PM PROCESS TREATER procedure are in the results section. after 12/22/2017 Results US Needle Aspiration (11/12/2018 2:44 PM PROCESS TREATER) Narrative Performed At [facility] Procedure:US NEEDLE ASPIRATION History:recurrent seromamidline abdominal wall PROCEDURE: After the risks, benefits, and alternatives to procedure discussed, informed consent was obtained, signed, and placed in the chart. A timeout was performed to verify the patient's identity and the post procedure. The anterior abdomen was prepped and draped in a sterile manner. 1% lidocaine was given for local anesthesia. Under ultrasound guidance, a Yueh catheter was advanced into the seroma. Approximately 150 cc of Clear yellow fluid was aspirated. The catheter was then removed and gentle pressure was applied to the puncture site. The patient tolerated the procedure well without any immediate complications. IMPRESSION: Ultrasound-guided anterior abdominal wall seroma aspiration. Approximately 150 cc of clear yellow fluid was removed. Samples were sent to the laboratory for cultures. [id number] Procedure Note Interface, Radiology Results Incoming - 11/12/2018 3:48 PM PROCESS TREATER Procedure:US NEEDLE ASPIRATION History:recurrent seroma midline abdominal wall PROCEDURE: After the risks, benefits, and alternatives to procedure discussed, informed consent was obtained, signed, and placed in the chart. A timeout was performed to verify the patient's identity and the post procedure. The anterior abdomen was prepped and draped in a sterile manner. 1% lidocaine was given for local anesthesia. Under ultrasound guidance, a Yueh catheter was advanced into the seroma. Approximately 150 cc of Clear yellow fluid was aspirated. The catheter was then removed and gentle pressure was applied to the puncture site. The patient tolerated the procedure well without any immediate complications. IMPRESSION: Ultrasound-guided anterior abdominal wall seroma aspiration. Approximately 150 cc of clear yellow fluid was removed. Samples were sent to the laboratory for cultures. [id number] Performing Organization Address City/[facility]/Zipcode Phone Number [facility] [address] [place] [address] Aerobic culture (11/12/2018 2:15 PM PROCESS TREATER) Aerobic culture isolate No growth after 3 days. [facility] Comment: HOSPITAL Specimen Information Specimen Source: Aspirate Specimen Site: Abdominal wall Specimen Aspirate - Abdominal wall Performing Organization Address City/[facility]/Zipcode Phone Number [facility] DEPARTMENT OF PATHOLOGY AND [address] [place] [id number] [facility] [address] [address] Gram stain (11/12/2018 2:15 PM PROCESS TREATER)Only the most recent of2 resultswithin the time period is included. Gram stain isolate No WBC's or organisms seen. [facility] Comment: Specimen Information Specimen Source: Aspirate Specimen Site: Abdominal wall Specimen Aspirate - Abdominal wall Performing Organization Address City/[facility] Phone Number [facility] DEPARTMENT OF PATHOLOGY AND [address] [place] [phone] [place] [phone] Anaerobic culture (11/12/2018 2:15 PM PROCESS TREATER) Anaerobic culture isolate No anaerobic organisms isolated. [facility] Comment: [facility] Specimen Information Specimen Source: Aspirate Specimen Site: Abdominal wall Specimen Aspirate - Abdominal wall Performing Organization Address City/[facility] Phone Number [facility] DEPARTMENT OF PATHOLOGY AND [address] [place] [address] POC glucose (11/12/2018 11:32 AM PROCESS TREATER)Only the most recent of4 resultswithin the time period is included. POC glucose 160 (H) 65 - 99 mg/dL [facility] Comment: HOSPITAL Meter ID: [id number] Photograph Mounter: Jaquelin Arauz Performing Organization Address [facility] Phone Number [facility] PATHOLOGY AND [address] [place] [address] Estimated GFR (11/12/2018 4:36 AM PROCESS TREATER)Only the most recent of2 resultswithin the time period is included. Estimated GFR 61 mL/min/1.73 m2 [facility] Comment: [facility] CatergoryUnitsInterpretation G1 >=90 Normal or high G2 60-89Mildly decreased [id number] to moderately decreased [id number] to severely decreased G4 15-29Severely decreased G5 <15Kidney failure The eGFR was calculated using the Chronic Kidney Disease Epidemiology Collaboration (CKD-EPI) equation. Interpretation is based on recommendations of the National Kidney Foundation-Kidney Disease Outcomes Quality Initiative (NKF-KDOQI) published in 2014. Specimen Plasma specimen Performing Organization Address [facility] Cent[facility]ode Phone Number [facility] DEPARTMENT OF PATHOLOGY AND [address] [place] [address] [phone] [place] [address] Partial thromboplastin time, activated (11/12/2018 4:36 AM PROCESS TREATER) PTT 34.3 23.0 - 36.[address] [facility] Comment: [facility] PTT therapeutic range for unfractionated heparin is 61.0-112.0 seconds which corresponds to Anti-Xa 0.3-0.7 U/ml. Specimen Blood Performing Organization Address City/[facility]/Zipcode Phone Number [facility] DEPARTMENT OF PATHOLOGY AND [address] [place] [address] Prothrombin time with INR (11/12/2018 4:36 AM PROCESS TREATER) Prothrombin time 14.0 11.5 - 14.5 sec [facility] INR 1.1 [facility] Comment: [facility] The International Normalized Ratio (INR) is a therapeutic monitoring tool for patients who are stable on oral anticoagulant therapy. An INR of 2.0-3.0 is suggested for deep vein thrombosis/pulmonary embolism. Specimen Blood Performing Organization Address [facility] Phone Number [facility] DEPARTMENT OF PATHOLOGY AND [address] [place] [phone] [place] [address] CBC with platelet and differential (11/12/2018 4:36 AM PROCESS TREATER)Only the most recent of2 resultswithin the time period is included. WBC 5.99 4.50 - 11.00 k/uL [facility] RBC 4.37 4.20 - 5.50 m/uL [facility] HGB 11.0 (L) 12.0 - 16.0 g/dL [facility] HCT 36.5 (L) 37.0 - 47.0 % [facility] MCV 83.5 82.0 - 100.0 fL [facility] MCH 25.2 (L) 27.0 - 34.0 pg [facility] MCHC 30.1 (L) 31.0 - 37.0 g/dL [facility] RDW - SD 42.5 37.0 - 55.0 fL [facility] MPV 9.9 8.8 - 13.2 fL [facility] Platelet count 200 150 - 400 k/uL [facility] Nucleated RBC 0.00 /100 WBC [facility] Neutrophils 40.6 39.0 - 69.0 % [facility] Lymphocytes 44.7 25.0 - 45.0 % [facility] Monocytes 7.7 0.0 - 10.0 % [facility] Eosinophils 6.5 (H) 0.0 - 5.0 % [facility] Basophils 0.3 0.0 - 1.0 % [facility] Specimen Blood Performing Organization Address City/[facility] Phone Number [facility] DEPARTMENT OF PATHOLOGY AND [address] [place] [address] Hemoglobin A1c (11/12/2018 4:36 AM PROCESS TREATER) Hemoglobin A1C 9.5 (H) 4.0 - 6.0 % [facility] Comment: HOSPITAL Less than 6% - Goal of therapy for Type II Diabetes Less than 7%-Goal of therapy for Type I Diabetes Less than 8%-Acceptable control for Type I or Type II Diabetes Greater than 8%-Unacceptable control; action indicated. ([id number]) Specimen Blood Performing Organization Address City/[facility] Cent[facility]ode Phone Number [facility] DEPARTMENT OF PATHOLOGY AND [address] [place] [address] Comprehensive metabolic panel (11/12/2018 4:36 AM PROCESS TREATER)Only the most recent of2 resultswithin the time period is included. Sodium 138 135 - 148 mEq/L [facility] Potassium 4.1 3.5 - 5.0 mEq/L [facility] Chloride 106 98 - 112 mEq/L [facility] CO2 23 (L) 24 - 31 mEq/L [facility] Anion gap 9@ANIO 7 - 15 mEq/L [facility] BUN 10 8 - 23 mg/dL [facility] Creatinine 1.10 (H) 0.50 - 0.90 mg/dL [facility] Glucose 154 (H) 65 - 99 mg/dL [facility] Calcium 8.9 8.8 - 10.2 mg/dL [facility] Protein 6.5 6.3 - 8.3 g/dL [facility] Comment: [facility] Victoria 4.6-7.0 g/dL 1 week 4.4-7.6 g/dL 7 months-1year5.1-7.3 g/dL 1-2 years5.6-7.5 g/dL >3 years6.0-8.0 g/dL 18-150 6.3-8.3 g/dL Albumin 3.7 3.5 - 5.0 g/dL [facility] A/G ratio 1.3 0.7 - 3.8 [facility] Alkaline phosphatase 112 (H) 35 - 104 U/L [facility] AST 20 10 - 35 U/L [facility] ALT 16 5 - 50 U/L [facility] Total bilirubin 0.3 0.0 - 1.2 mg/dL [facility] Specimen Plasma specimen Performing Organization Address [facility] Phone Number [facility] DEPARTMENT OF PATHOLOGY AND [address] [place] [address] ALT (SGPT) (11/11/2018 6:44 PM PROCESS TREATER) ALT 18 5 - 50 U/L [facility] Specimen Plasma specimen Performing Organization Address City/[facility] Cent[facility] Phone Number [facility] DEPARTMENT OF PATHOLOGY AND [address] [place] [phone] [place] [address] AST (SGOT) (11/11/2018 6:44 PM PROCESS TREATER) AST 21 10 - 35 U/L [facility] Specimen Plasma specimen Performing Organization Address [facility] Phone Number [facility] DEPARTMENT OF PATHOLOGY AND [address] [place] [address] Potassium level (11/11/2018 6:44 PM PROCESS TREATER) Potassium 4.3 3.5 - 5.0 mEq/L [facility] Specimen Plasma specimen Performing Organization Address [facility] Phone Number [facility] DEPARTMENT OF PATHOLOGY AND [id number] [place] [address] Alkaline phosphatase (11/11/2018 6:44 PM PROCESS TREATER) Alkaline phosphatase 132 (H) 35 - 104 U/L [facility] Specimen Plasma specimen Performing Organization Address [facility] Phone Number [facility] DEPARTMENT OF PATHOLOGY AND [address] [place] [phone] [place] [address] Abdomen Pelvis Wo Contrast (11/11/2018 2:16 PM PROCESS TREATER) Narrative Performed At EXAMINATION:CT ABDOMEN PELVIS WO CONTRAST [facility] CLINICAL HISTORY:abd pain COMPARISON:May 09, 2015 TECHNIQUE: Multiple axial CT images of the Abdomen and pelvis were obtained Without IV contrast limiting evaluation . Sagittal and coronal reconstructions were done. Radiation dose reduction technique used for this study. CT imaging was performed with iterative reconstruction technique and/or automated exposure control to reduce radiation dose. FINDINGS: HEPATOBILIARY:Unremarkable within the limitations of a noncontrast exam. GALLBLADDER: Normal. SPLEEN:No splenomegaly. PANCREAS:Unremarkable within the limitations of a noncontrast exam. ADRENALS:No adrenal nodules. KIDNEYS:No stones or hydronephrosis. PERITONEUM/RETROPERITONEUM:No free air or fluid. No lymphadenopathy. ABDOMINAL AORTA/IVC: No signs of aneurysm. GI TRACT:Visualized portions of the bowel demonstrate no distention or wall thickening. The appendix is normal.No signs of diverticulitis. PELVIC ORGANS/BLADDER:The urinary bladder is fluid-filled. Uterus and ovaries are absent. BONES AND SOFT TISSUES:The previously noted seroma in the midline anterior abdominal wall is smaller measures 7.6 x 11 cm. Mild surrounding fat stranding. Small nodular hyperdensity along the wall of the stroma nonspecific could represent debris or septation. VISUALIZED LOWER CHEST: No acute abnormality. IMPRESSION: No acute abnormality. [id number] Procedure Note Interface, Radiology Results Incoming - 11/11/2018 2:27 PM PROCESS TREATER EXAMINATION: CT ABDOMEN PELVIS WO CONTRAST CLINICAL HISTORY: abd pain COMPARISON: May 09, 2015 TECHNIQUE: Multiple axial CT images of the Abdomen and pelvis were obtained Without IV contrast limiting evaluation . Sagittal and coronal reconstructions were done. Radiation dose reduction technique used for this study. CT imaging was performed with iterative reconstruction technique and/or automated exposure control to reduce radiation dose. FINDINGS: HEPATOBILIARY: Unremarkable within the limitations of a noncontrast exam. GALLBLADDER: Normal. SPLEEN: No splenomegaly. PANCREAS: Unremarkable within the limitations of a noncontrast exam. ADRENALS: No adrenal nodules. KIDNEYS: No stones or hydronephrosis. PERITONEUM/RETROPERITONEUM: No free air or fluid. No lymphadenopathy. ABDOMINAL AORTA/IVC: No signs of aneurysm. GI TRACT: Visualized portions of the bowel demonstrate no distention or wall thickening. The appendix is normal.No signs of diverticulitis. PELVIC ORGANS/BLADDER: The urinary bladder is fluid-filled. Uterus and ovaries are absent. BONES AND SOFT TISSUES: The previously noted seroma in the midline anterior abdominal wall is smaller measures 7.6 x 11 cm. Mild surrounding fat stranding. Small nodular hyperdensity along the wall of the stroma nonspecific could represent debris or septation. VISUALIZED LOWER CHEST: No acute abnormality. IMPRESSION: No acute abnormality. [id number] Performing Organization Address City/State/Zipcode Phone Number [facility] [address] [place] [address] Urinalysis screen and microscopy, with reflex to culture (11/11/2018 12:36 PM PROCESS TREATER) Specimen site Clean catch [facility] Color, UA Yellow [facility] Appearance, UA Clear [facility] Specific gravity, UA 1.012 1.001 - 1.035 [facility] pH, UA 5.0 5.0 - 8.5 [facility] Protein, UA Negative Negative [facility] Glucose, UA Negative Negative [facility] Ketones, UA Negative Negative [facility] Bilirubin, UA Negative Negative [facility] Blood, UA Negative Negative [facility] Nitrite, UA Negative Negative [facility] Urobilinogen, UA Negative <2.0 [facility] Leukocyte esterase, UA Negative Negative [facility] Epithelial cells, UA Few /HPF [facility] WBC, UA None seen 0 - 4 /HPF [facility] RBC, UA 0-5 0 - 5 /HPF [facility] Bacteria, UA Moderate (A) None seen [facility] Yeast, UA None seen [facility] Yeast with pseudohyphae, UA None seen [facility] Specimen Urine Performing Organization Address City/[facility] Phone Number [facility] DEPARTMENT OF PATHOLOGY AND [address] [place] [address] Urine culture (11/11/2018 12:36 PM PROCESS TREATER) Urine culture isolate Mixed suad <=10-3 col/cc [facility] Comment: Specimen Information Specimen Source: Urine Specimen Site: Clean catch Specimen Urine Performing Organization Address City/State/Zipcode Phone Number [facility] DEPARTMENT OF PATHOLOGY AND [address] [place] [address] Lipase level (11/11/2018 12:36 PM PROCESS TREATER) Lipase 20 13 - 60 U/L [facility] Specimen Plasma specimen Performing Organization Address [facility] Phone Number [facility] DEPARTMENT OF PATHOLOGY AND [address] [place] [address] after 12/22/2017 Insurance Payer Benefit Plan / Group Subscriber ID Type Phone Address [facility] Advance Directives Patient has advance care planning documents on file. For more information, please contact:Ruben Mendenhall[address] [place] [address]
[2018-12-23] MEDS ORDERED: GLUCAGON 1 MG/VIAL IM PRN (15:35)
[2018-12-23] MEDS ORDERED: D50W 25 GM/50 ML SYRINGE IV PRN (15:35)
[2018-12-23 16:31] LABS: Albumin 3.2 g/dL (3.4-5.0); Bilirubin Total 0.4 mg/dL (0.2-1.0); Potassium 4.4 mmol/L (3.5-5.1); Protein, Total 7.4 g/dL (6.4-8.2)
[2018-12-23] MEDS ORDERED: MORPHINE 4 MG/ML SYR ONE (16:42)
[2018-12-23] MEDS ORDERED: ONDANSETRON 4 MG/2 ML VIAL ONE (16:42)
[2018-12-23] MEDS ORDERED: PANTOPRAZOLE 40 MG INJ ONE (16:43)
[2018-12-23] MEDS ORDERED: NA CHLORIDE 0.9% 1,000 ML ONE (16:43)
--- NOTE | 2018-12-23 17:44 | RAD REPORT ---
EXAM DESCRIPTION: CT - Thorax Wo Con CLINICAL HISTORY: Chest pain pneumonia COMPARISON: Chest Pa And Lat (2 Views) dated 12/23/2018 FINDINGS: An oblong opacity is present in the lingula measuring 4.9 x 2.6 cm. Mild tree-in-bud opaci ties also present in the anterior left upper lobe. Mild linear subsegmental atelectasis is seen in th e posterior left base. Trace left pleural fluid is present. No pneumothorax. No axillary, mediastinal or hilar adenopathy. No concerning bony finding. No gross upper abdominal finding. All CT scans are performed using dose optimization technique as appropriate and may include automated exposure control or mA/KV adjustment according to patient size. IMPRESSION: [place] opacity in the lingula measuring 4.9 x 2.6 cm noted, favored to represent pneumon ia.However, as airspace neoplasm can have a similar appearance, follow-up imaging until complete leonardo maria fernanda is recommended.
[2018-12-23] MEDS: INSULIN -REGULAR HUMAN 50 UNIT/0.5 ML ML SQ SCH ×2 (17:56→21:34)
[2018-12-23] MEDS: CEFTRIAXONE/SWI 2gm 2 GM/20 ML SYR IVP SCH (17:57)
[2018-12-23] MEDS: HYDRALAZINE HCL 20 MG/ML VIAL IV PRN (18:37)
[2018-12-23] MEDS: ALBUTEROL 2.5 MG/3 ML NEB SOL NEB SCH (20:00)
[2018-12-23] MEDS: HYDROCODONE/APAP 10/325 TAB PO PRN (22:19)
[2018-12-23 22:48] LABS: Urine Appearance CLEAR; Urine Bilirubin NEGATIVE (NEG); Urine Blood NEGATIVE (NEG); Urine Color YELLOW; Urine Glucose NEGATIVE (NEG); Urine Protein NEGATIVE (NEG); Urine Specific Gravity 1.015 (1.005-1.030); Urine pH 7.5 (5.0-7.0)
[2018-12-23 22:52] LABS: Urine Microscopic Reflex NO UMIC
[2018-12-24] MEDS: ALBUTEROL 2.5 MG/3 ML NEB SOL NEB SCH ×4 (02:00→20:31)
[2018-12-24] MEDS: HYDRALAZINE HCL 20 MG/ML VIAL IV PRN ×2 (04:55→07:06)
[2018-12-24] MEDS: INSULIN -REGULAR HUMAN 50 UNIT/0.5 ML ML SQ SCH ×4 (07:30→22:22)
[2018-12-24] MEDS ORDERED: cloNIDine HCl 0.1 MG TAB PO ONE (07:53)
[2018-12-24] MEDS: INSULIN GLARGINE 100 UNITS/ML SQ SCH ×2 (08:00→16:50)
[2018-12-24] MEDS ORDERED: INFLUENZA VACCINE (for 3y+) 0.5 ML DOSE IMVAC ONE (08:00)
[2018-12-24] MEDS ORDERED: PNEUMOCOCCAL VACCINE 0.5 ML IMVAC ONE (08:00)
[2018-12-24] MEDS: FUROSEMIDE 40 MG TABLET PO SCH ×2 (08:32→21:00)
[2018-12-24] MEDS: HYDROCODONE/APAP 10/325 TAB PO PRN ×2 (08:32→17:08)
[2018-12-24] MEDS: HYDRALAZINE HCL 25 MG TABLET PO SCH ×4 (08:32→22:20)
[2018-12-24] MEDS: ASPIRIN 81 MG CHEWABLE TABLET PO SCH (08:33)
[2018-12-24] MEDS: ATENOLOL 25 MG TAB PO SCH ×2 (08:33→22:19)
[2018-12-24] MEDS: CLOPIDOGREL 75 MG TABLET PO SCH (08:34)
[2018-12-24] MEDS: POTASSIUM CL SA 10 MEQ TAB PO SCH (08:34)
[2018-12-24] MEDS: METOCLOPRAMIDE 5 MG TAB PO SCH ×4 (08:34→22:18)
[2018-12-24] MEDS ORDERED: ATORVASTATIN 40 MG TAB PO SCH (09:00)
[2018-12-24] MEDS: cloNIDine HCl 0.1 MG TAB PO SCH ×3 (09:00→22:20)
[2018-12-24] MEDS: CEFTRIAXONE/SWI 2gm 2 GM/20 ML SYR IVP SCH (09:30)
--- NOTE | 2018-12-24 11:41 | P.CNS ---
Date of Consult: 12/24/18 Chief Complaint: Fever chills left lung mass History of Present Illness: Patient is 63 years of age with a history of asthma became sick about a week ago started complaining of fever chills cough and appeared in the hospital was found to have a mass in the left lung denies any chest pain has improved since admission patient does take Symbicort at home for asthma and is compliant Allergies Iodinated Contrast- Oral and IV Dye [Iodinated Contrast Media - IV Dye] Allergy (Verified 10/05/18 02:22) Hives/Rash morphine Allergy (Verified 10/05/18 02:22) Itching Home Medications: Insulin Aspart [Novolog] 30 unit SQ TIDWM 02/05/15 Potassium Chloride [Micro-K] 20 meq PO DAILY 02/05/15 cloNIDine HCl [Catapres*] 0.1 mg PO TID 02/05/15 Aspirin 325 mg PO DAILY 10/04/17 Atorvastatin Calcium [Lipitor] 40 mg PO DAILY 10/04/17 Atenolol [Tenormin*] 50 mg PO BID 10/25/17 Clopidogrel Bisulfate [Plavix*] 75 mg PO DAILY 10/25/17 Hydralazine HCl [Apresoline] 50 mg PO QID 10/25/17 Amox/Clavulanate [Augmentin 875-125 Tab*] 875 mg PO BID #10 tab 10/27/17 Furosemide [Lasix*] 40 mg PO BID 10/05/18 Hydrocodone 10/APAP 325 [Cedar 10/325*] 1 tab PO QID PRN 10/05/18 Insulin Glargine,Hum.rec.anlog [Basaglar Kwikpen U-100] 35 units SQ BIDWM Metoclopramide HCl [Reglan] 10 mg PO QID 12/23/18 - Past Medical/Surgical History Diabetic: Yes -: HTN -: High cholesteral -: COPD -: DM I -: GERD -: 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 -: CHF -: Hernia -: hysterectomy - Family History Mother Medical History: Hypertension, Diabetes, Kidney disease Father Medical History: Hypertension, Diabetes - Social History Alcohol use: No CD- Drugs: No Caffeine use: Yes Place of Residence: Home Review of Systems 10-point ROS is otherwise unremarkable General: Weakness Respiratory: Cough, Shortness of Breath Physical Examination Temp Pulse Resp BP Pulse Ox 97.3 F 79 18 198/84 H 96 12/24/18 08:00 12/24/18 08:32 12/24/18 08:00 12/24/18 08:32 12/24/18 08:00 General: Alert, Oriented x3 Neck: Supple Respiratory: Clear to auscultation bilaterally Cardiovascular: No edema, Regular rate/rhythm Laboratory Data (last 24 hrs) 12/23/18 16:00: Sodium 136, Potassium 4.4, BUN 10, Creatinine 1.02, Glucose 226 H, Total Bilirubin 0.4, AST 25, ALT 21, Alkaline Phosphatase 128 H - Problems (1) Lung mass Current Visit: Yes Status: Acute Plan: Patient is 63 years of age with a history of asthma compliant admitted with 1 week history of worsening shortness of breath and fever unusual oblong shaped mass in the region of the lingula I have ordered a CBC chemistries reviewed patient is feeling better can be discharged home on antibiotics continue with Symbicort to follow up with me in 2 weeks with a pre clinic chest x-ray patient' s blood pressure is elevated oxygenation stable discharge home tomorrow
[2018-12-24] MEDS: ENOXAPARIN 30 MG/0.3 ML SQ SCH (16:50)
[2018-12-24] MEDS: ATORVASTATIN 40 MG TAB PO SCH (22:19)
--- NOTE | 2018-12-25 00:50 | HP ---
Date of Admission: 12/23/2018 Chief Complaint: Difficulty with breathing, fever. History Of Present Illness: A 63-year-old female who was seen a few days prior to admission for uppe r respiratory infection. She was given Augmentin. She returned because of increased wheezing and sh ortness of breath. Outpatient chest x-ray showed a masslike lesion, possible pneumonia. The patient is admitted. There is no history of chest pain or other systemic symptoms. Past Medical History: Extensive and includes history of type 2 diabetes, requiring insulin; history of hypertension; COPD/asthma. The patient also has history of hypertension. Allergies: THE PATIENT HAS MULTIPLE ALLERGIES, INCLUDES IODINE AND MORPHINE. Family History: Noncontributory. Personal History: Currently, nonsmoker. Home Medicines: Please refer to the chart. Review of Systems: The patient denied any chest pain. Physical Examination: General: Revealed a 63-year-old female with audible wheezing. HEENT: Congested throat. Neck: Supple. JVD negative. Chest: Bilateral wheezes. Heart: Regular. Abdomen: Pendulous, nontender. Extremities: No edema. Laboratory Data: Done outpatient was essentially negative. White count was normal. Chest x-ray and CT scan of the chest; evidence of pneumonia on the left lung. Assessment: 1.Pneumonia. 2.Acute bronchitis. 3.Chronic obstructive pulmonary disease exacerbation. 4.Type 2 diabetes. 5.Hypertension. 6.Anxiety. Plan: The patient is on IV Rocephin. Pulmonary consultation has been done. The patient is started on a sliding scale. Her blood pressure medications have been restarted. KATY/YOSELYN Voice ID: [id number]
[2018-12-25] MEDS: ALBUTEROL 2.5 MG/3 ML NEB SOL NEB SCH ×4 (01:33→20:10)
[2018-12-25] MEDS: HYDROCODONE/APAP 10/325 TAB PO PRN ×3 (03:48→22:21)
[2018-12-25] MEDS: HYDRALAZINE HCL 20 MG/ML VIAL IV PRN (05:21)
[2018-12-25] MEDS: INSULIN -REGULAR HUMAN 50 UNIT/0.5 ML ML SQ SCH ×4 (07:30→22:22)
[2018-12-25] MEDS: HYDRALAZINE HCL 25 MG TABLET PO SCH ×4 (07:47→22:21)
[2018-12-25] MEDS: cloNIDine HCl 0.1 MG TAB PO SCH ×3 (07:47→22:22)
[2018-12-25] MEDS: INSULIN GLARGINE 100 UNITS/ML SQ SCH ×2 (08:00→17:00)
[2018-12-25] MEDS: METOCLOPRAMIDE 5 MG TAB PO SCH ×4 (08:46→22:20)
[2018-12-25] MEDS: ASPIRIN 81 MG CHEWABLE TABLET PO SCH (08:46)
[2018-12-25] MEDS: FUROSEMIDE 40 MG TABLET PO SCH ×2 (08:47→17:12)
[2018-12-25] MEDS: POTASSIUM CL SA 10 MEQ TAB PO SCH (08:47)
[2018-12-25] MEDS: CLOPIDOGREL 75 MG TABLET PO SCH (08:53)
[2018-12-25] MEDS: ATENOLOL 25 MG TAB PO SCH ×2 (08:53→22:21)
[2018-12-25] MEDS: CEFTRIAXONE/SWI 2gm 2 GM/20 ML SYR IVP SCH (09:41)
--- NOTE | 2018-12-25 16:37 | RAD REPORT ---
EXAM DESCRIPTION: RAD - Chest Pa And Lat (2 Views) - 12/25/2018 4:18 pm CLINICAL HISTORY: Pneumonia COMPARISON: CT chest December 23, two view chest December 23 TECHNIQUE: PA and lateral views of the chest were obtained. FINDINGS: The lungs are slightly underinflated. Baseline chronic interstitial lung disease again not ed. Masslike density in the lingula left upper lobe has not clearly changed. Pneumonia versus mass remain s the differential consideration and continued follow-up is needed to assure complete clearing. Heart size is normal and central vasculature is within normal limits. No pleural effusion or pneu mothorax seen. No acute bony finding noted. No aortic abnormality. IMPRESSION: Pneumonia versus mass in the lingula left upper lobe not clearly different from comparis on. No new or progressive finding. Continued follow-up is needed to assure clearing.
[2018-12-25] MEDS: ENOXAPARIN 30 MG/0.3 ML SQ SCH (17:12)
[2018-12-25] MEDS: ATORVASTATIN 40 MG TAB PO SCH (22:22)
[2018-12-26] MEDS: ALBUTEROL 2.5 MG/3 ML NEB SOL NEB SCH ×4 (02:35→21:05)
--- NOTE | 2018-12-26 02:43 | PN ---
The patient continues to have wheezing and coughing. There is scanty amount of blood in the sputum a ccording to the patient. The patient's chest x-ray was repeated today. It does not show any improve ment of her mass. I will discuss the case with Dr. Vidal tomorrow to see whether consideration of mass should be done in view of these findings. KATY/YOSELYN Voice ID: [id number] Report ID: [id number]
[2018-12-26] MEDS: HYDROCODONE/APAP 10/325 TAB PO PRN ×5 (02:56→23:38)
[2018-12-26 05:18] VITALS: BMI 45.8
[2018-12-26] MEDS: INSULIN -REGULAR HUMAN 50 UNIT/0.5 ML ML SQ SCH ×4 (07:30→20:59)
[2018-12-26] MEDS: INSULIN GLARGINE 100 UNITS/ML SQ SCH ×2 (08:00→17:00)
[2018-12-26] MEDS: ATENOLOL 25 MG TAB PO SCH (09:00)
[2018-12-26] MEDS: ATENOLOL 50 MG TAB PO SCH (09:40)
--- NOTE | 2018-12-26 09:48 | P.PN ---
Subjective Date of Service: 12/27/18 Chief Complaint: Shortness of breath chest discomfort Patient is doing much better shortness of breath has improved blood pressure is also under control Review of Systems General: Weakness Respiratory: Cough, Shortness of Breath Physical Examination - Vital Signs Temperature: 97.6 F Blood Pressure: 183/83 Pulse: 68 Respirations: 18 Pulse Ox (%): 97 - Physical Exam General: Alert, Oriented x3 HEENT: Atraumatic Neck: Supple Respiratory: Clear to auscultation bilaterally Cardiovascular: No edema, Normal S1 S2 Assessment & Plan - Problems (Diagnosis) (1) Lung mass Current Visit: Yes Status: Acute Plan: Continue with Augmentin (2) Asthma exacerbation Onset Date: 10/05/17 Current Visit: No Status: Acute Plan: Patient is doing better resume her bronchodilators at home Qualifiers: Asthma severity: moderate (3) Hypertension Current Visit: Yes Status: Acute Plan: Dc atenolol reduce Lasix to 40 mg daily at spironolactone Qualifiers: Hypertension type: essential hypertension Qualified Code(s): I10 - Essential (primary) hypertension
[2018-12-26] MEDS: CEFTRIAXONE/SWI 2gm 2 GM/20 ML SYR IVP SCH (09:49)
[2018-12-26] MEDS: ASPIRIN 81 MG CHEWABLE TABLET PO SCH (09:49)
[2018-12-26] MEDS: HYDRALAZINE HCL 25 MG TABLET PO SCH ×4 (09:50→20:59)
[2018-12-26] MEDS: POTASSIUM CL SA 10 MEQ TAB PO SCH (09:50)
[2018-12-26] MEDS: cloNIDine HCl 0.1 MG TAB PO SCH ×3 (09:50→20:57)
[2018-12-26] MEDS: CLOPIDOGREL 75 MG TABLET PO SCH (09:50)
[2018-12-26] MEDS: FUROSEMIDE 40 MG TABLET PO SCH ×2 (09:51→16:17)
[2018-12-26] MEDS ORDERED: predniSONE 20 MG TAB PO SCH (10:00)
[2018-12-26] MEDS: METOCLOPRAMIDE 5 MG TAB PO SCH ×4 (10:03→20:59)
[2018-12-26] MEDS: predniSONE 10 MG TAB PO SCH ×2 (10:04→21:00)
[2018-12-26] MEDS: SPIRONOLACTONE 25 MG TABLET PO SCH ×2 (10:04→20:58)
[2018-12-26] MEDS: ENOXAPARIN 30 MG/0.3 ML SQ SCH (16:18)
[2018-12-26] MEDS: ATORVASTATIN 40 MG TAB PO SCH (20:58)
--- NOTE | 2018-12-26 22:43 | PN ---
The patient is doing better, but she has intermittent episodes of dyspnea and wheezing. Her chest x- ray continues to show the findings. It is not clear whether she really has pneumonia or whether it i s a mass. However, as per recommendations of Dr. Vidal, she will be continued on the present [facility]. KATY/YOSELYN Voice ID: [id number] Report ID: [id number]
[2018-12-27] MEDS: ALBUTEROL 2.5 MG/3 ML NEB SOL NEB SCH ×3 (01:35→14:00)
[2018-12-27] MEDS: ATENOLOL 50 MG TAB PO SCH (06:09)
[2018-12-27] MEDS: HYDROCODONE/APAP 10/325 TAB PO PRN ×2 (06:09→12:27)
[2018-12-27] MEDS: INSULIN GLARGINE 100 UNITS/ML SQ SCH (09:03)
[2018-12-27] MEDS: INSULIN -REGULAR HUMAN 50 UNIT/0.5 ML ML SQ SCH ×2 (09:03→12:25)
[2018-12-27] MEDS: METOCLOPRAMIDE 5 MG TAB PO SCH ×2 (09:04→12:31)
[2018-12-27] MEDS: POTASSIUM CL SA 10 MEQ TAB PO SCH (09:04)
[2018-12-27] MEDS: SPIRONOLACTONE 25 MG TABLET PO SCH (09:05)
[2018-12-27] MEDS: FUROSEMIDE 40 MG TABLET PO SCH (09:05)
[2018-12-27] MEDS: predniSONE 10 MG TAB PO SCH (09:06)
[2018-12-27] MEDS: CLOPIDOGREL 75 MG TABLET PO SCH (09:07)
[2018-12-27] MEDS: cloNIDine HCl 0.1 MG TAB PO SCH ×2 (09:07→13:55)
[2018-12-27] MEDS: ASPIRIN 81 MG CHEWABLE TABLET PO SCH (09:08)
[2018-12-27] MEDS: HYDRALAZINE HCL 25 MG TABLET PO SCH ×2 (09:13→12:31)
[2018-12-27] MEDS ORDERED: AMOX/K CLAV 875 MG TAB PO SCH (11:00)
[2018-12-27 12:43] VITALS: O2SAT 100
[2018-12-27 13:13] VITALS: BP 196/83; TEMP 97
[2018-12-27] MEDS ORDERED: PNEUMOCOCCAL VACCINE 0.5 ML IMVAC ONE (15:00)
[2018-12-27] MEDS ORDERED: INFLUENZA VACCINE (for 3y+) 0.5 ML DOSE IMVAC ONE (15:00)
== END 2018-12-27 15:33 | disposition home or self-care (01) ==
LOC: 4TH 15:12 → INTOOBSV 15:12
PROVIDERS: ADMIT Internal Medicine; ATTEND Internal Medicine
DX: J44.0 Chronic obstructive pulmonary disease with (acute) lower respiratory infection (principal); J18.9 Pneumonia, unspecified organism; J44.1 Chronic obstructive pulmonary disease with (acute) exacerbation; R91.8 Other nonspecific abnormal finding of lung field; E11.9 Type 2 diabetes mellitus without complications; I10 Essential (primary) hypertension; F41.9 Anxiety disorder, unspecified
CPT/HCPCS: 36415; 71046; 71250; 80053; 81003; 82962; 87070; 87205; 90670; C9113; G0378; G0379; J0360; J0696; J1650; J2405; J7030; J7512; Q2035

== ENCOUNTER 2019-02-10 15:19 | Observation (INO) | payer OTHER ==
--- OUTSIDE RECORDS SUMMARY | 2019-02-10 15:42 | XMS REPORT | Clinical Summary ---
:1955 Author Organization [facility] Address [address] [place] [address] Care Team Providers Name Role Phone Ted [...] Nigel Abdominal wall seroma, subsequent encounter Flako Avila DO 11/11/2018 Travel after 02/09/2018 Social History Tobacco Use Types Packs/Day Years [...] Taken Blood Pressure 178/81 11/12/2018 4:06 PM [facility] Pulse 72 11/12/2018 4:06 PM [facility] Temperature 37.2 C (98.9 F) 11/12/2018 4:06 PM [facility] Respiratory Rate 17 11/12/2018 4:06 PM [facility] Oxygen Saturation 98% 11/12/2018 4:06 PM [facility] Inhaled Oxygen Concentration - - Weight 127 kg (280 lb) 11/11/2018 11:06 AM [facility] Height 167.6 cm (5' 6") 11/11/2018 11:06 AM [facility] Body Mass Index 45.19 11/11/2018 11:06 AM [facility] Plan of Treatment Health Maintenance Due Date Last Done Comments CERVICAL CANCER SCREENING 1974 BREAST CANCER SCREENING 2003 COLON CANCER SCREENING 2003 SHINGLES VACCINES (#1) 2003 65+ PNEUMOCOCCAL VACCINE (2 of 2 - PPSV23) 2018 10/05/2017 INFLUENZA VACCINE 06/02/2019 PNEUMOCOCCAL POLYSACCHARIDE VACCINE AGE 65 AND OVER Completed 10/05/2017 Procedures Procedure Name Priority Date/Time Associated Comments Diagnosis US NEEDLE ASPIRATION Routine 11/12/2018 2:44 Results for this PM [facility] procedure are in the results section. GRAM STAIN Routine 11/12/2018 2:15 Results for this PM [facility] procedure are in the results section. ANAEROBIC CULTURE Routine 11/12/2018 2:15 Results for this PM [facility] procedure are in the results section. AEROBIC CULTURE Routine 11/12/2018 2:15 Results for this PM [facility] procedure are in the results section. POC GLUCOSE Routine 11/12/2018 11:32 Results for this AM [facility] procedure are in the results section. POC GLUCOSE Routine 11/12/2018 5:38 Results for this AM [facility] procedure are in the results section. PARTIAL THROMBOPLASTIN Routine 11/12/2018 4:36 Results for this TIME (PTT) AM [facility] procedure are in the results section. PROTHROMBIN TIME WITH Routine 11/12/2018 4:36 Results for this INR AM [facility] procedure are in the results section. HEMOGLOBIN A1C Routine 11/12/2018 4:36 Results for this AM [facility] procedure are in the results section. ESTIMATED GFR Routine 11/12/2018 4:36 Results for this AM [facility] procedure are in the results section. COMPREHENSIVE METABOLIC Routine 11/12/2018 4:36 Results for this PANEL AM [facility] procedure are in the results section. HC COMPLETE BLD COUNT Routine 11/12/2018 4:36 Results for this W/AUTO DIFF AM [facility] procedure are in the results section. POC GLUCOSE Routine 11/11/2018 7:36 Results for this PM [facility] procedure are in the results section. ALT (SGPT) STAT 11/11/2018 6:44 Results for this PM [facility] procedure are in the results section. POTASSIUM LEVEL STAT 11/11/2018 6:44 Results for this PM [facility] procedure are in the results section. AST (SGOT) STAT 11/11/2018 6:44 Results for this PM [facility] procedure are in the results section. ALKALINE PHOSPHATASE STAT 11/11/2018 6:44 Results for this PM [facility] procedure are in the results section. POC GLUCOSE Routine 11/11/2018 3:18 Results for this PM [facility] procedure are in the results section. CT ABDOMEN PELVIS WO STAT 11/11/2018 2:16 Results for this CONTRAST PM [facility] procedure are in the results section. LIPASE LEVEL STAT 11/11/2018 12:36 Results for this PM [facility] procedure are in the results section. ESTIMATED GFR STAT 11/11/2018 12:36 Results for this PM [facility] procedure are in the results section. URINALYSIS SCREEN AND Routine 11/11/2018 12:36 Results for this MICROSCOPY, WITH REFLEX PM [facility] procedure are in TO CULTURE the results section. COMPREHENSIVE METABOLIC STAT 11/11/2018 12:36 Results for this PANEL PM [facility] procedure are in the results section. HC COMPLETE BLD COUNT STAT 11/11/2018 12:36 Results for this W/AUTO DIFF PM [facility] procedure are in the results section. GRAM STAIN Routine 11/11/2018 12:36 Results for this PM [facility] procedure are in the results section. URINE CULTURE Routine 11/11/2018 12:36 Results for this PM [facility] procedure are in the results section. after 02/09/2018 Results US Needle Aspiration (11/12/2018 2:44 PM [facility]) Narrative Performed At [facility] Procedure:US NEEDLE ASPIRATION History:recurrent seromamidline abdominal wall [...] were sent to the laboratory for cultures. [id number] Procedure Note Interface, Radiology Results Incoming - 11/12/2018 3:48 PM [facility] Procedure:US NEEDLE ASPIRATION History:recurrent seroma midline abdominal [...] were sent to the laboratory for cultures. [id number] Performing Organization Address City/[facility]/Zipcode Phone Number [facility] [address] [place] [address] Aerobic culture (11/12/2018 2:15 PM [facility]) Aerobic culture isolate No growth after 3 days. [facility] Comment: HOSPITAL Specimen Information Specimen Source: Aspirate Specimen Site: Abdominal wall Specimen Aspirate - Abdominal wall Performing Organization Address City/[facility]/Zipcode Phone Number [facility] DEPARTMENT OF PATHOLOGY AND [address] [place] [id number] [facility] [address] [address] Gram stain (11/12/2018 2:15 PM [facility])Only the most recent of2 resultswithin the time period is included. Gram stain isolate No WBC's or organisms seen. [facility] Comment: Specimen Information Specimen Source: Aspirate Specimen Site: Abdominal wall Specimen Aspirate - Abdominal wall Performing Organization Address City/[facility] Phone Number [facility] DEPARTMENT OF PATHOLOGY AND [address] [place] [id number] [place] [id number] Anaerobic culture (11/12/2018 2:15 PM [facility]) Anaerobic culture isolate No anaerobic organisms isolated. [facility] Comment: [facility] Specimen Information Specimen Source: Aspirate Specimen Site: Abdominal wall Specimen Aspirate - Abdominal wall Performing Organization Address City/[facility] Phone Number [facility] DEPARTMENT OF PATHOLOGY AND [address] [place] [address] POC glucose (11/12/2018 11:32 AM [facility])Only the most recent of4 resultswithin the time period is included. POC glucose 160 (H) 65 - 99 mg/dL [facility] Comment: HOSPITAL Meter ID: [id number] [employer] Dealer: Jaquelin Arauz Performing Organization Address [facility] Phone Number [facility] PATHOLOGY AND [address] [place] [address] Estimated GFR (11/12/2018 4:36 AM [facility])Only the most recent of2 resultswithin the time period is included. Estimated GFR 61 mL/min/1.73 m2 [facility] Comment: [facility] CatergoryUnitsInterpretation G1 >=90 Normal or high G2 60-89Mildly decreased S0m90-12Hheujk to moderately decreased [id number] to severely decreased G4 15-29Severely decreased G5 <15Kidney failure The eGFR was calculated using the Chronic Kidney Disease Epidemiology Collaboration (CKD-EPI) equation. Interpretation is based on recommendations of the National Kidney Foundation-Kidney Disease Outcomes Quality Initiative (NKF-KDOQI) published in 2014. Specimen Plasma specimen Performing Organization Address [facility] Phone Number [facility] DEPARTMENT OF PATHOLOGY AND [address] [place] [address] [id number] [place] [address] Partial thromboplastin time, activated (11/12/2018 4:36 AM [facility]) PTT 34.3 23.0 - 36.0 sec [facility] Comment: [facility] PTT therapeutic range for unfractionated heparin is 61.0-112.0 seconds which corresponds to Anti-Xa 0.3-0.7 U/ml. Specimen Blood Performing Organization Address City/[facility]/Zipcode Phone Number [facility] DEPARTMENT OF PATHOLOGY AND [address] [place] [address] Prothrombin time with INR (11/12/2018 4:36 AM [facility]) Prothrombin time 14.0 11.5 - 14.5 sec [facility] INR 1.1 [facility] Comment: [facility] The International Normalized Ratio (INR) is a therapeutic monitoring tool for patients who are stable on oral anticoagulant therapy. An INR of 2.0-3.0 is suggested for deep vein thrombosis/pulmonary embolism. Specimen Blood Performing Organization Address [facility] Phone Number [facility] DEPARTMENT OF PATHOLOGY AND [address] [place] [id number] [place] [address] CBC with platelet and differential (11/12/2018 4:36 AM [facility])Only the most recent of2 resultswithin the time period is included. WBC 5.99 4.50 - 11.00 k/uL [facility] RBC 4.37 4.20 - 5.50 m/uL [facility] HGB 11.0 (L) 12.0 - 16.0 g/dL [facility] HCT 36.5 (L) 37.0 - 47.0 % [facility] MCV 83.5 82.0 - 100.0 fL [facility] MCH 25.2 (L) 27.0 - 34.0 pg [facility] MCHC 30.1 (L) 31.0 - 37.0 g/dL [facility] RDW - SD 42.5 37.0 - 55.0 fL [facility] MPV 9.9 8.8 - 13.2 fL [facility] Platelet count 200 150 - 400 k/uL [facility] Nucleated RBC 0.00 /100 WBC [facility] Neutrophils 40.6 39.0 - 69.0 % [facility] Lymphocytes 44.7 25.0 - 45.0 % [facility] Monocytes 7.7 0.0 - 10.0 % [facility] Eosinophils 6.5 (H) 0.0 - 5.0 % [facility] Basophils 0.3 0.0 - 1.0 % [facility] Specimen Blood Performing Organization Address City/[facility] Phone Number [facility] DEPARTMENT OF PATHOLOGY AND [address] [place] [address] Hemoglobin A1c (11/12/2018 4:36 AM [facility]) Hemoglobin A1C 9.5 (H) 4.0 - 6.0 % [facility] Comment: HOSPITAL Less than 6% - Goal of therapy for Type II Diabetes Less than 7%-Goal of therapy for Type I Diabetes Less than 8%-Acceptable control for Type I or Type II Diabetes Greater than 8%-Unacceptable control; action indicated. ([id number]) Specimen Blood Performing Organization Address City/[facility] Phone Number [facility] DEPARTMENT OF PATHOLOGY AND [address] [place] [address] Comprehensive metabolic panel (11/12/2018 4:36 AM [facility])Only the most recent of2 resultswithin the time period is included. Sodium 138 135 - 148 mEq/L [facility] Potassium 4.1 3.5 - 5.0 mEq/L [facility] Chloride 106 98 - 112 mEq/L [facility] CO2 23 (L) 24 - 31 mEq/L [facility] Anion gap 9@ANIO 7 - 15 mEq/L [facility] BUN 10 8 - 23 mg/dL [facility] Creatinine 1.10 (H) 0.50 - 0.90 mg/dL [facility] Glucose 154 (H) 65 - 99 mg/dL [facility] Calcium 8.9 8.8 - 10.2 mg/dL [facility] Protein 6.5 6.3 - 8.3 g/dL [facility] Comment: [facility] 4.6-7.0 g/dL 1 week 4.4-7.6 g/dL 7 months-1year5.1-7.3 g/dL 1-2 years5.6-7.5 g/dL >3 years6.0-8.0 g/dL 18-150 6.3-8.3 g/dL Albumin 3.7 3.5 - 5.0 g/dL [facility] A/G ratio 1.3 0.7 - 3.8 [facility] Alkaline phosphatase 112 (H) 35 - 104 U/L [facility] AST 20 10 - 35 U/L [facility] ALT 16 5 - 50 U/L [facility] Total bilirubin 0.3 0.0 - 1.2 mg/dL [facility] Specimen Plasma specimen Performing Organization Address [facility] Phone Number [facility] DEPARTMENT OF PATHOLOGY AND [address] [place] [address] ALT (SGPT) (11/11/2018 6:44 PM [facility]) ALT 18 5 - 50 U/L [facility] Specimen Plasma specimen Performing Organization Address City/[facility] Phone Number [facility] DEPARTMENT OF PATHOLOGY AND [address] [place] [id number] [place] [address] AST (SGOT) (11/11/2018 6:44 PM [facility]) AST 21 10 - 35 U/L [facility] Specimen Plasma specimen Performing Organization Address [facility] Phone Number [facility] DEPARTMENT OF PATHOLOGY AND [address] [place] [address] Potassium level (11/11/2018 6:44 PM [facility]) Potassium 4.3 3.5 - 5.0 mEq/L [facility] Specimen Plasma specimen Performing Organization Address [facility] Phone Number [facility] DEPARTMENT OF PATHOLOGY AND [id number] [place] [address] Alkaline phosphatase (11/11/2018 6:44 PM [facility]) Alkaline phosphatase 132 (H) 35 - 104 U/L [facility] Specimen Plasma specimen Performing Organization Address [facility] Phone Number [facility] DEPARTMENT OF PATHOLOGY AND [address] [place] [id number] [place] [address] Abdomen Pelvis Wo Contrast (11/11/2018 2:16 PM [facility]) Narrative Performed At EXAMINATION:CT ABDOMEN PELVIS WO [...] No acute abnormality. IMPRESSION: No acute abnormality. [id number] Procedure Note Interface, Radiology Results Incoming - 11/11/2018 2:27 PM [facility] EXAMINATION: CT ABDOMEN PELVIS WO CONTRAST CLINICAL [...] No acute abnormality. IMPRESSION: No acute abnormality. [id number] Performing Organization Address City/State/Zipcode Phone Number [facility] [address] [place] [address] Urinalysis screen and microscopy, with reflex to culture (11/11/2018 12:36 PM [facility]) Specimen site Clean catch [facility] Color, UA Yellow [facility] Appearance, UA Clear [facility] Specific gravity, UA 1.012 1.001 - 1.035 [facility] pH, UA 5.0 5.0 - 8.5 [facility] Protein, UA Negative Negative [facility] Glucose, UA Negative Negative [facility] Ketones, UA Negative Negative [facility] Bilirubin, UA Negative Negative [facility] Blood, UA Negative Negative [facility] Nitrite, UA Negative Negative [facility] Urobilinogen, UA Negative <2.0 [facility] Leukocyte esterase, UA Negative Negative [facility] Epithelial cells, UA Few /HPF [facility] WBC, UA None seen 0 - 4 /HPF [facility] RBC, UA 0-5 0 - 5 /HPF [facility] Bacteria, UA Moderate (A) None seen [facility] Yeast, UA None seen [facility] Yeast with pseudohyphae, UA None seen [facility] Specimen Urine Performing Organization Address City/[facility] Phone Number [facility] DEPARTMENT OF PATHOLOGY AND [address] [place] [address] Urine culture (11/11/2018 12:36 PM [facility]) Urine culture isolate Mixed suad <=10-3 col/cc [facility] Comment: Specimen Information Specimen Source: Urine Specimen Site: Clean catch Specimen Urine Performing Organization Address City/[facility]/Zipcode Phone Number [facility] DEPARTMENT OF PATHOLOGY AND [address] [place] [address] Lipase level (11/11/2018 12:36 PM [facility]) Lipase 20 13 - 60 U/L [facility] Specimen Plasma specimen Performing Organization Address [facility] Phone Number [facility] DEPARTMENT OF PATHOLOGY AND [address] [place] [address] after 02/09/2018 Insurance Payer Benefit Plan / Group Subscriber ID Type Phone Address [facility] HMO Advance Directives Patient has advance care planning documents on file. For more information, please contact:Ruben Mendenhall[address] [place] [address]
[2019-02-10 16:03] VITALS: BMI 44.6
[2019-02-10] MEDS ORDERED: GLUCAGON 1 MG/VIAL IM PRN (16:28)
[2019-02-10] MEDS ORDERED: D50W 25 GM/50 ML SYRINGE IV PRN (16:28)
[2019-02-10 16:43] LABS: Absolute Lymphocytes (CBC) 2.7 K/uL (0.7-4.9); Absolute Monocytes 0.6 K/uL (0.1-1.3); Absolute Neutrophil 2.5 K/uL (1.8-8.0); Basophils % 0.6 % (0-1.3); Eosinophils % 7.1 % (0-4.4); Lymphocytes % 42.6 % (15.3-44.8); MPV 7.6 fL (7.6-11.3); Monocytes % 9.7 % (3.3-12.3)
[2019-02-10 17:07] LABS: Bilirubin Total 0.4 mg/dL (0.2-1.0); Potassium 3.9 mmol/L (3.5-5.1); Protein, Total 8.2 g/dL (6.4-8.2)
[2019-02-10 17:14] VITALS: O2SAT 98
[2019-02-10] MEDS: INSULIN -REGULAR HUMAN 50 UNIT/0.5 ML ML SQ SCH ×2 (17:34→21:13)
[2019-02-10] MEDS: METHYLPREDNISOLONE 40 MG INJ IV SCH ×2 (17:35→23:59)
[2019-02-10] MEDS: Levofloxacin500mg IV 500 MG/100 ML BAG IV SCH (17:35)
[2019-02-10] MEDS: ALBUTEROL 2.5 MG/3 ML NEB SOL NEB SCH ×3 (17:50→23:30)
--- NOTE | 2019-02-10 20:34 | RAD REPORT ---
EXAM DESCRIPTION: Nhan Pa And Lat (2 Views)02/10/2019 8:27 pm CLINICAL HISTORY: Cough COMPARISON: December 2018 FINDINGS: Left lung opacities have mostly resolved. Right lung appears clear of acute infiltrate. The heart is borderline in the IMPRESSION: Left pneumonia has mostly wrist
[2019-02-10] MEDS ORDERED: CYCLOBENZAPRINE 10 MG TAB PO SCH (21:00)
[2019-02-10] MEDS: SPIRONOLACTONE 25 MG TABLET PO SCH (21:06)
[2019-02-10] MEDS: cloNIDine HCl 0.1 MG TAB PO SCH (21:07)
[2019-02-10] MEDS: HYDROCODONE/APAP 10/325 TAB PO PRN (21:07)
[2019-02-10] MEDS: HYDRALAZINE HCL 25 MG TABLET PO SCH (21:14)
[2019-02-10 21:38] LABS: Urine Appearance CLEAR; Urine Bilirubin NEGATIVE (NEG); Urine Blood NEGATIVE (NEG); Urine Color YELLOW; Urine Glucose NEGATIVE (NEG); Urine Protein NEGATIVE (NEG)
[2019-02-10 21:40] LABS: Urine Microscopic Reflex NO UMIC
[2019-02-11] MEDS: HYDROCODONE/APAP 10/325 TAB PO PRN (03:09)
[2019-02-11] MEDS: ALBUTEROL 2.5 MG/3 ML NEB SOL NEB SCH ×3 (03:30→12:23)
[2019-02-11] MEDS ORDERED: INSULIN GLARGINE 100 UNITS/ML SQ SCH (08:00)
[2019-02-11] MEDS: INSULIN -REGULAR HUMAN 50 UNIT/0.5 ML ML SQ SCH ×2 (08:57→14:18)
[2019-02-11] MEDS: Levofloxacin500mg IV 500 MG/100 ML BAG IV SCH (08:58)
[2019-02-11] MEDS: SPIRONOLACTONE 25 MG TABLET PO SCH (08:59)
[2019-02-11] MEDS: METHYLPREDNISOLONE 40 MG INJ IV SCH (08:59)
[2019-02-11] MEDS ORDERED: ATORVASTATIN 40 MG TAB PO SCH (09:00)
[2019-02-11] MEDS: HYDRALAZINE HCL 25 MG TABLET PO SCH ×2 (09:00→14:09)
[2019-02-11] MEDS ORDERED: PANTOPRAZOLE 40MG TABLET PO SCH (09:00)
[2019-02-11] MEDS ORDERED: CLOPIDOGREL 75 MG TABLET PO SCH (09:00)
[2019-02-11] MEDS ORDERED: Fluticasone/Umeclidin/Vilanter (Trelegy Ellipta) 100-62.5-25 MCG IH SCH (09:00)
[2019-02-11] MEDS ORDERED: ASPIRIN 81 MG CHEWABLE TABLET PO SCH ×2 (09:00)
[2019-02-11] MEDS ORDERED: FUROSEMIDE 40 MG TABLET PO SCH (09:00)
[2019-02-11] MEDS: cloNIDine HCl 0.1 MG TAB PO SCH (10:34)
[2019-02-11 18:01] VITALS: BP 138/63; TEMP 97.3
--- NOTE | 2019-02-12 13:08 | HP ---
Date of Admission: 02/10/2019 Final Diagnoses: 1.Acute asthmatic bronchitis. 2.Type 2 diabetes. 3.Hypertension. 4.Hyperlipidemia. 5.Gastroesophageal reflux disease. 6.History of cerebrovascular accident. 7.Chronic pain management issues. History Of Present Illness: A 63-year-old female was brought to the office with wheezing, shortness of breath and coughing. The patient was found to have severe wheezing in the office. Because of res piratory distress, the patient was admitted for observation, to have IV steroid therapy. The patient denied any history of hemoptysis. Past Medical History: Positive for hypertension, type 2 diabetes, asthma, history of CVA, history of gastroesophageal reflux disease. Family History: Diabetes present. Personal History: Currently nonsmoker. Allergies: IODINE, MORPHINE. Review of Systems: No history of chest pain. Physical Examination: General: A revealed 63-year-old female with audible wheezing from bronchospasm. Vital Signs: Temperature normal. HEENT: Congested throat. Neck: Supple. JVD negative. Chest: Bilateral wheezes and poor air entry. Heart: Mild tachycardia. Abdomen: Pendulous, nontender. Extremities: No edema. Laboratory Data: Chest x-ray, no evidence of pneumonia. CBC, normal white count. Assessment: 1.Status asthmaticus. 2.Type 2 diabetes. 3.Hypertension. 4.History of cerebrovascular accident. 5.Gastroesophageal reflux disease. 6.Hyperlipidemia. 7.Morbid obesity. 8.Chronic pain management issues. Plan: After admission, the patient received IV steroids, breathing treatments. On the following day , she was able to ambulate in the room without shortness of breath. At this point, she was discharge d on oral steroids and antibiotics with advice to follow up in the office. KATY/YOSELYN Voice ID: [id number]
== END 2019-02-11 14:34 | disposition home health service (06) ==
LOC: 2ND 15:38
PROVIDERS: ADMIT Internal Medicine; ATTEND Internal Medicine
DX: J45.902 Unspecified asthma with status asthmaticus (principal); E11.9 Type 2 diabetes mellitus without complications; I10 Essential (primary) hypertension; E78.5 Hyperlipidemia, unspecified; K21.9 Gastro-esophageal reflux disease without esophagitis; G89.29 Other chronic pain; E66.01 Morbid (severe) obesity due to excess calories; Z86.73 Personal history of transient ischemic attack (TIA), and cerebral infarction without residual deficits; Z88.6 Allergy status to analgesic agent; Z91.09 Other allergy status, other than to drugs and biological substances; Z68.41 Body mass index [BMI] 40.0-44.9, adult; Z71.3 Dietary counseling and surveillance
CPT/HCPCS: 87070; 85025; 36415; 87205; 82962 ×5; 81003; 80053; 71046; 94640; J2920 ×3; G0379; G0378

== ENCOUNTER 2019-09-16 11:51 | Emergency (ER) | payer OTHER ==
[2019-09-16 12:59] LABS: Absolute Lymphocytes (CBC) 2.3 K/uL (0.7-4.9); Basophils % 0.7 % (0-1.3); Hematocrit 37.7 % (36.0-45.0); Lymphocytes % 41.7 % (15.3-44.8); MPV 7.7 fL (7.6-11.3); RBC Red Blood Cell Count 4.73 M/uL (3.86-4.86)
[2019-09-16] MEDS ORDERED: MEPERIDINE HCL 25 MG/0.5 ML ONE (13:10)
[2019-09-16] MEDS ORDERED: ALBUTEROL 2.5 MG/3 ML NEB SOL ONE (13:10)
[2019-09-16] MEDS ORDERED: ONDANSETRON 4 MG/2 ML VIAL ONE (13:10)
[2019-09-16] MEDS ORDERED: IPRATROPIUM BROM 0.5MG/2.5ML ONE (13:10)
[2019-09-16 13:22] LABS: Albumin 3.6 g/dL (3.4-5.0); Bilirubin Direct 0.1 mg/dL (0-0.2); Bilirubin Total 0.3 mg/dL (0.2-1.0); Potassium 4.1 mmol/L (3.5-5.1); Protein, Total 7.3 g/dL (6.4-8.2)
--- NOTE | 2019-09-16 13:44 | RAD REPORT ---
EXAM DESCRIPTION: CT - Stone Protocol - 09/16/2019 1:33 pm CLINICAL HISTORY: Flank pain. left flank pain COMPARISON: Abdomen Pelvis Wo Contrast dated 10/04/2018 TECHNIQUE: Axial images were obtained without oral or IV contrast. Lack of contrast limits solid org an and vascular assessment. The [id number] spans the entirety of the system partially obscuring uppermost abdomen and lung bases. Coronal reformatted images were obtained and reviewed. All CT scans are performed using dose optimization technique as appropriate and may include automated exposure control or mA/KV adjustment according to patient size. FINDINGS: The lower lung stallings are clear. Imaged portions of the liver and spleen show no suspicious findings on non-contrast imaging. The panc reas and adrenal glands are normal. No pathologic lymphadenopathy in the abdomen or pelvis. No urinary tract stones or obstructive uropathy. No bowel obstruction, free air, free fluid or abscess. Normal appendix noted.Chronic thick-walled sub cutaneous fluid collection in the umbilicus region is slightly smaller on today's study measuring 7.5 x 4.3 cm. No significant bony abnormality. Aortoiliac atherosclerosis. Moderate stool is present throughout the colon. IMPRESSION: No urinary tract stones or obstructive uropathy. Moderate fecal retention in the colon.
[2019-09-16] MEDS ORDERED: BISACODYL E.C. 5 MG TAB PO ONE (14:25)
[2019-09-16] MEDS ORDERED: MAGNESIUM CITRATE 300 ML BOT ONE (14:26)
--- NOTE | 2019-09-16 14:46 | EDPHYS ---
Physician Documentation [facility] Name: Jose F Espinoza Age: 64 yrs Sex: Female : 1955 Arrival Date: 09/16/2019 Time: 11:52 Bed 14 Private MD: ED Physician Tunde Carter HPI: 09/16 19:22 This 64 yrs old Black Female presents to ER via Ambulatory with complaints of Abdominal kdr Pain, Back Pain. 19:22 The patient presents with pain that is acute, with no known mechanism of injury, and kdr tenderness. The symptoms are located in the Left flank area. Onset: The symptoms/episode began/occurred gradually, 4 day(s) ago. The pain does not radiate. Associated signs and symptoms: Pertinent positives: nausea, vomiting, x 1. The problem was sustained without known cause. Modifying factors: The patient symptoms are alleviated by nothing, the patient symptoms are aggravated by bending, movement. Severity of symptoms: At their worst the symptoms were mild, moderate, just prior to arrival, in the emergency department the symptoms are unchanged. The patient has not experienced similar symptoms in the past. The patient has not recently seen a physician. Historical: - Allergies: 12:13 Iodinated Contrast Media - IV Dye; tw2 12:13 Morphine; tw2 - Home Meds: 12:13 aspirin 81 mg Oral chew 1 tab once daily [Active]; atenolol 25 mg Oral tab 1 tab once tw2 daily [Active]; atorvastatin 40 mg Oral tab 1 tab once daily [Active]; clonidine HCl 0.1 mg Oral tab 1 tab 3 times per day [Active]; hydralazine 50 mg Oral tab [Active]; Lantus 100 unit/mL Sub-Q soln 30 unit twice a day [Active]; levalbuterol HCl inhalation [Active]; Novolog 100 unit/mL Sub-Q soln 35 unit three times a day [Active]; olmesartan Oral 1 tab [Active]; ondansetron HCl 4 mg Oral tab [Active]; Plavix 75 mg Oral tab 1 tab once daily [Active]; potassium chloride 10 mEq Oral cpER 1 cap 2 times per day [Active]; Tessalon Perles 100 mg Oral cap 1 cap 3 times per day [Active]; - PMHx: 12:13 Asthma; CVA; Diabetes - NIDDM; Hypertension; tw2 - PSHx: 12:13 Hysterectomy; Hernia repair; tw2 - Immunization history:: Adult Immunizations. - Social history:: Smoking status: . - Ebola Screening: : Patient denies exposure to infectious person. ROS: 19:22 Constitutional: Negative for fever, chills, and weight loss, Eyes: Negative for injury, kdr pain, redness, and discharge, ENT: Negative for injury, pain, and discharge, Neck: Negative for injury, pain, and swelling, Cardiovascular: Negative for chest pain, palpitations, and edema, Respiratory: Negative for shortness of breath, cough, wheezing, and pleuritic chest pain, Back: Negative for injury and pain, : Negative for injury, bleeding, discharge, and swelling, MS/Extremity: Negative for injury and deformity, Skin: Negative for injury, rash, and discoloration, Neuro: Negative for headache, weakness, numbness, tingling, and seizure activity. Psych: Negative for depression, anxiety, suicide ideation, homicidal ideation, and hallucinations, Allergy/Immunology: Negative for hives, rash, and allergies, Endocrine: Negative for neck swelling, polydipsia, polyuria, polyphagia, and marked weight changes, Hematologic/Lymphatic: Negative for swollen nodes, abnormal bleeding, and unusual bruising. 19:22 Abdomen/GI: Positive for abdominal pain, constipation, left flank pain, Negative for diarrhea, abdominal cramps, abdominal distension, anorexia, dysphagia, hematemesis, black/tarry stool, rectal pain, rectal bleeding, bowel incontinence. Exam: 19:22 Constitutional: This is a well developed, well nourished patient who is awake, alert, kdr and in mild distress. Head/Face: Normocephalic, atraumatic. Eyes: Pupils equal round and reactive to light, extra-ocular motions intact. Lids and lashes normal. Conjunctiva and sclera are non-icteric and not injected. Cornea within normal limits. Periorbital areas with no swelling, redness, or edema. Neck: Trachea midline, no thyromegaly or masses palpated, and no cervical lymphadenopathy. Supple, full range of motion without nuchal rigidity, or vertebral point tenderness. No Meningismus. Chest/axilla: Normal chest wall appearance and motion. Nontender with no deformity. No lesions are appreciated. Cardiovascular: Regular rate and rhythm with a normal S1 and S2. No gallops, murmurs, or rubs. Normal PMI, no JVD. No pulse deficits. Respiratory: Lungs have equal breath sounds bilaterally, clear to auscultation and percussion. No rales, rhonchi or wheezes noted. No increased work of breathing, no retractions or nasal flaring. Abdomen/GI: Soft, non-tender, with normal bowel sounds. No distension or tympany. No guarding or rebound. No evidence of tenderness throughout. Mild to moderate left flank pain Back: No spinal tenderness. No costovertebral tenderness. Full range of motion. Skin: Warm, dry with normal turgor. Normal color with no rashes, no lesions, and no evidence of cellulitis. MS/ Extremity: Pulses equal, no cyanosis. Neurovascular intact. Full, normal range of motion. Neuro: Awake and alert, GCS 15, oriented to person, place, time, and situation. Cranial nerves II-XII grossly intact. Motor strength 5/5 in all extremities. Sensory grossly intact. Cerebellar exam normal. Normal gait. Psych: Awake, alert, with orientation to person, place and time. Behavior, mood, and affect are within normal limits. Vital Signs: 12:11 BP 131 / 115; Pulse 86; Resp 17; Temp 98.3(O); Pulse Ox 100% on R/A; Weight 119.29 kg tw2 (R); Height 5 ft. 6 in. (167.64 cm); Pain 10/10; 12:46 BP 185 / 86; Pulse 79; Resp 17 S; Pulse Ox 100% on R/A; ca1 13:57 BP 175 / 155; Pulse 88; Resp 19 S; Pulse Ox 100% on Nebulizer Mask; ca1 14:32 BP 155 / 72; Pulse 87; Resp 18 S; Pulse Ox 98% on R/A; ca1 15:07 BP 159 / 86; Pulse 99; Resp 18 S; Pulse Ox 100% on R/A; ca1 12:11 Body Mass Index 42.45 (119.29 kg, 167.64 cm) tw2 MDM: 14:45 Patient medically screened. kdr 19:22 Data reviewed: vital signs, nurses notes, lab test result(s), radiologic studies. kdr Counseling: I had a detailed discussion with the patient and/or guardian regarding: the historical points, exam findings, and any diagnostic results supporting the discharge/admit diagnosis, lab results, radiology results, the need for outpatient follow up. 09/16 12:36 Order name: Basic Metabolic Panel; Complete Time: 14:18 ca1 09/16 12:36 Order name: CBC with Diff; Complete Time: 14:18 ca1 09/16 12:36 Order name: Creatinine for Radiology; Complete Time: 14:18 ca1 09/16 12:36 Order name: Hepatic Function; Complete Time: 14:18 ca1 09/16 12:36 Order name: Lipase; Complete Time: 14:18 ca1 09/16 13:06 Order name: CT Stone Protocol; Complete Time: 14:18 kdr 09/16 12:36 Order name: IV Saline Lock; Complete Time: 12:37 ca1 09/16 12:36 Order name: Labs collected and sent; Complete Time: 12:37 ca1 Administered Medications: 13:10 Drug: Albuterol - atroVENT (3:1) (2.5 mg - 0.5 mg) 3 ml Route: Nebulizer; ca1 14:23 Follow up: Response: No adverse reaction; Wheezing diminished ca1 13:11 Drug: Zofran 4 mg Route: IVP; Site: left antecubital; ca1 14:23 Follow up: Response: No adverse reaction; Nausea is decreased ca1 13:15 Drug: Demerol 25 mg Route: IVP; Site: left antecubital; ca1 14:23 Follow up: Response: No adverse reaction; Pain is decreased; RASS: Alert and Calm (0) ca1 14:25 Drug: Dulcolax Delayed Release Tablet 5 mg Route: PO; ca1 14:57 Follow up: Response: No adverse reaction ca1 14:34 Drug: Magnesium Citrate Liquid 300 ml Route: PO; ca1 14:57 Follow up: Response: No adverse reaction ca1 Disposition: 09/16/19 14:45 Discharged to Home. Impression: Abdominal and pelvic pain, Constipation. - Condition is Stable. - Discharge Instructions: Constipation, Adult, Ayaj-ci-Cope, Abdominal Pain, Adult, [id number]. - Prescriptions for Pepcid 20 mg Oral Tablet - take 1 tablet by ORAL route every 12 hours for 5 days; 10 tablet. Zofran 4 mg Oral Tablet - take 1 tablet by ORAL route every 12 hours As needed; 20 tablet. Miralax 17 gram/dose Oral - take 1 packet by ORAL route once daily dilute powder in 8 ounces of water or juice; 20 packet. - Medication Reconciliation Form, Thank You Letter form. - Follow up: Private Physician; When: 2 - 3 days; Reason: If symptoms return, Further diagnostic work-up, Recheck today's complaints, Continuance of care, Re-evaluation by your physician. - Problem is new. - Symptoms have improved. Signatures: Dispatcher [employer] EDMS Tunde Carter MD MD kdr Damaris Piña RN RN tw2 Nathaly Meier RN RN ca1 Corrections: (The following items were deleted from the chart) 15:34 14:45 09/16/2019 14:45 Discharged to Home. Impression: Abdominal and pelvic pain; ca1 Constipation. Condition is Stable. Forms are Medication Reconciliation Form, Thank You Letter, Antibiotic Education, Prescription Opioid Use. Follow up: Private Physician; When: 2 - 3 days; Reason: If symptoms return, Further diagnostic work-up, Recheck today's complaints, Continuance of care, Re-evaluation by your physician. Problem is new. Symptoms have improved. kdr
--- NOTE | 2019-09-16 14:46 | ER ---
Nurse's Notes [facility] Name: Jose F Espinoza Age: 64 yrs Sex: Female : 1955 Arrival Date: 09/16/2019 Time: 11:52 Bed 14 Private MD: Diagnosis: Abdominal and pelvic pain;Constipation Presentation: 09/16 12:10 Presenting complaint: Patient states: i think its my colon and my gallbladder, i am tw2 been taking lactulose and it cramped me so bad i was throwing up a dodooing, it has been hurting on the left of my stomach and it goes down to my lower back. Transition of care: patient was not received from another setting of care. Onset of symptoms was September 16, 2019. Risk Assessment: Do you want to hurt yourself or someone else? Patient reports no desire to harm self or others. Initial Sepsis Screen: Does the patient meet any 2 criteria? No. Patient's initial sepsis screen is negative. Does the patient have a suspected source of infection? No. Patient's initial sepsis screen is negative. Care prior to arrival: None. 12:10 Method Of Arrival: Ambulatory tw2 12:10 Acuity: QUANG 2 tw2 Triage Assessment: 12:11 General: Appears uncomfortable, Behavior is cooperative. Pain: Complains of pain in tw2 back and abdomen. GI: Abdomen is round Reports lower abdominal pain, anorexia, diarrhea, nausea, vomiting. Historical: - Allergies: 12:13 Iodinated Contrast Media - IV Dye; tw2 12:13 Morphine; tw2 - Home Meds: 12:13 aspirin 81 mg Oral chew 1 tab once daily [Active]; atenolol 25 mg Oral tab 1 tab once tw2 daily [Active]; atorvastatin 40 mg Oral tab 1 tab once daily [Active]; clonidine HCl 0.1 mg Oral tab 1 tab 3 times per day [Active]; hydralazine 50 mg Oral tab [Active]; Lantus 100 unit/mL Sub-Q soln 30 unit twice a day [Active]; levalbuterol HCl inhalation [Active]; Novolog 100 unit/mL Sub-Q soln 35 unit three times a day [Active]; olmesartan Oral 1 tab [Active]; ondansetron HCl 4 mg Oral tab [Active]; Plavix 75 mg Oral tab 1 tab once daily [Active]; potassium chloride 10 mEq Oral cpER 1 cap 2 times per day [Active]; Tessalon Perles 100 mg Oral cap 1 cap 3 times per day [Active]; - PMHx: 12:13 Asthma; CVA; Diabetes - NIDDM; Hypertension; tw2 - PSHx: 12:13 Hysterectomy; Hernia repair; tw2 - Immunization history:: Adult Immunizations. - Social history:: Smoking status: . - Ebola Screening: : Patient denies exposure to infectious person. Screenin:31 Abuse screen: Denies threats or abuse. Denies injuries from another. Nutritional ca1 screening: No deficits noted. Tuberculosis screening: No symptoms or risk factors identified. Fall Risk IV access (20 points). Assessment: 12:31 General: Appears in no apparent distress. uncomfortable, Behavior is calm, cooperative, ca1 appropriate for age. General: Behavior is. Pain: Complains of pain in epigastric area, suprapubic area and posterior aspect of left lateral abdomen Pain currently is 10 out of 10 on a pain scale. Pain began 2-3 days ago. Is intermittent. Neuro: Level of Consciousness is awake, alert, obeys commands, Oriented to person, place, time, situation. Cardiovascular: Heart tones S1 S2 present Capillary refill < 3 seconds Patient's skin is warm and dry. Respiratory: Airway is patent Respiratory effort is even, unlabored, Respiratory pattern is regular, symmetrical, Breath sounds with wheezes bilaterally. GI: Abdomen is round non-distended, Bowel sounds present X 4 quads. Abd is soft X 4 quads Abdomen is tender to palpation in epigastric area and suprapubic area Reports nausea, vomiting. : No deficits noted. No signs and/or symptoms were reported regarding the genitourinary system. Derm: Skin is intact, is healthy with good turgor, Skin is pink, warm \T\ dry. Musculoskeletal: Circulation, motion, and sensation intact. Capillary refill < 3 seconds, Range of motion: intact in all extremities. 13:50 Reassessment: Patient appears in no apparent distress at this time. Patient and/or ca1 family updated on plan of care and expected duration. Pain level reassessed. Patient is alert, oriented x 3, equal unlabored respirations, skin warm/dry/pink. 13:53 Reassessment: Pt BP elevated. Pt requested to take her BP home meds with Dr. Carter's ca1 approval. Clonidine 0.2Mg and Hydralazine 50mg. 14:32 Reassessment: Patient appears in no apparent distress at this time. Patient is alert, ca1 oriented x 3, equal unlabored respirations, skin warm/dry/pink. Vital Signs: 12:11 BP 131 / 115; Pulse 86; Resp 17; Temp 98.3(O); Pulse Ox 100% on R/A; Weight 119.29 kg tw2 (R); Height 5 ft. 6 in. (167.64 cm); Pain 10/10; 12:46 BP 185 / 86; Pulse 79; Resp 17 S; Pulse Ox 100% on R/A; ca1 13:57 BP 175 / 155; Pulse 88; Resp 19 S; Pulse Ox 100% on Nebulizer Mask; ca1 14:32 BP 155 / 72; Pulse 87; Resp 18 S; Pulse Ox 98% on R/A; ca1 15:07 BP 159 / 86; Pulse 99; Resp 18 S; Pulse Ox 100% on R/A; ca1 12:11 Body Mass Index 42.45 (119.29 kg, 167.64 cm) tw2 ED Course: 11:52 Patient arrived in ED. as 12:11 Triage completed. tw2 12:11 Arm band placed on. tw2 12:18 Nathaly Meier, RN is Primary Nurse. ca1 12:31 Patient has correct armband on for positive identification. Placed in gown. Bed in low ca1 position. Call light in reach. Side rails up X2. Pulse ox on. NIBP on. Warm blanket given. 12:31 Inserted saline lock: 20 gauge in left antecubital area, using aseptic technique. Blood ca1 collected. 12:57 Tunde Carter MD is Attending Physician. kdr 13:34 CT Stone Protocol In Process Unspecified. EDMS 15:06 No provider procedures requiring assistance completed. IV discontinued, intact, ca1 bleeding controlled, No redness/swelling at site. Pressure dressing applied. Administered Medications: 13:10 Drug: Albuterol - atroVENT (3:1) (2.5 mg - 0.5 mg) 3 ml Route: Nebulizer; ca1 14:23 Follow up: Response: No adverse reaction; Wheezing diminished ca1 13:11 Drug: Zofran 4 mg Route: IVP; Site: left antecubital; ca1 14:23 Follow up: Response: No adverse reaction; Nausea is decreased ca1 13:15 Drug: Demerol 25 mg Route: IVP; Site: left antecubital; ca1 14:23 Follow up: Response: No adverse reaction; Pain is decreased; RASS: Alert and Calm (0) ca1 14:25 Drug: Dulcolax Delayed Release Tablet 5 mg Route: PO; ca1 14:57 Follow up: Response: No adverse reaction ca1 14:34 Drug: Magnesium Citrate Liquid 300 ml Route: PO; ca1 14:57 Follow up: Response: No adverse reaction ca1 Outcome: 14:45 Discharge ordered by . kdr 15:06 Discharged to home ambulatory, with family. ca1 15:06 Condition: stable 15:06 Discharge instructions given to patient, Instructed on discharge instructions, follow up and referral plans. medication usage, Demonstrated understanding of instructions, follow-up care, medications, Prescriptions given X 3. 15:34 Patient left the ED. ca1 Signatures: Dispatcher [employer] EDMS Tunde Carter MD MD kdr Martinez, Amelia as Wise, Tara, ORLY RN tw2 Nathaly Meier RN RN ca1 Corrections: (The following items were deleted from the chart) 12:13 12:10 Acuity: QUANG 3 tw2 tw2
[2019-09-16 15:54] VITALS: TEMP 98.3
[2019-09-16 16:01] VITALS: BP 159/86; O2SAT 100
== END 2019-09-16 15:34 | disposition home or self-care (01) ==
LOC: ER 11:51
DX: R10.9 Unspecified abdominal pain (principal); R10.2 Pelvic and perineal pain; K59.00 Constipation, unspecified; Z88.6 Allergy status to analgesic agent; Z91.09 Other allergy status, other than to drugs and biological substances; I10 Essential (primary) hypertension; E11.9 Type 2 diabetes mellitus without complications; J45.909 Unspecified asthma, uncomplicated; Z86.73 Personal history of transient ischemic attack (TIA), and cerebral infarction without residual deficits
CPT/HCPCS: 85025; 80048; 36415; 80076; 83690; 76377; 74176; J2175; J2405

== ENCOUNTER 2021-06-07 07:27 | Day surgery (SDC) | payer OTHER ==
--- NOTE | 2021-06-05 17:01 | EKG ---
Test Date: 2021-06-04 Test Time: 14:29:59 Managing Cognitive Engineer: TESSA MEASUREMENT RESULTS: Intervals: Rate: 63 CO: 176 QRSD: 118 QT: 436 QTc: 446 [place]: P: 54 CO: 176 QRS: -40 T: -65 INTERPRETIVE STATEMENTS: Normal sinus rhythm Left axis deviation Left ventricular hypertrophy with QRS widening T wave abnormality, consider inferolateral ischemia Abnormal ECG Compared to ECG 10/06/2018 08:24:28 T-wave abnormality now present Possible ischemia now present Early repolarization no longer present Electronically Signed On 06-05-21 16:58:59 CDT by Fabrice Clark
[2021-06-07] MEDS ORDERED: NA CHLORIDE 0.9% 1,000 ML ONE (08:09)
[2021-06-07] MEDS ORDERED: FENTANYL CITR 100 MCG/2 ML ONE ×2 (08:52→10:15)
[2021-06-07] MEDS ORDERED: LIDOCAINE 2% MPF 5 ML VIAL ONE (08:52)
[2021-06-07] MEDS ORDERED: propofoL 200 MG/20 ML VIAL IV ONE (08:52)
[2021-06-07] MEDS ORDERED: MIDAZOLAM HCL 2 MG/2 ML INJ ONE (08:52)
[2021-06-07] MEDS ORDERED: ONDANSETRON 4 MG/2 ML VIAL ONE (08:53)
[2021-06-07] MEDS ORDERED: EPINEPHRINE/PF 1 MG/ML AMP ONE (09:03)
[2021-06-07] MEDS ORDERED: OXYMETAZOLINE HCL 0.05% 15ML NAS ONE (09:03)
[2021-06-07] MEDS ORDERED: SUCCINYLCHOLINE 20 MG/ML (10 ML) IV ONE ×2 (09:05→09:06)
[2021-06-07] MEDS ORDERED: ROCURONIUM 50 MG/5 ML VIAL IV ONE (09:25)
[2021-06-07] MEDS ORDERED: GLYCOPYRROLATE 0.2 MG/ML SYR ONE (09:25)
[2021-06-07] MEDS ORDERED: NEOSTIGMINE 1 MG/ML -5 ML ONE (09:37)
--- NOTE | 2021-06-07 09:44 | P.BOP ---
Preoperative diagnosis: dysphonia Postoperative diagnosis: same, vocal fold swelling Primary procedure: DL with telescope Correctional Cook: NONE,NONE Estimated blood loss: nil Specimen: none Findings: VF edema without cyst/nodule/lesion/mass Anesthesia: General Complications: None Implants: none Fluids & blood products: crystalloid 650ml Transferred to: Recovery Room Condition: Good
[2021-06-07] MEDS ORDERED: ACETAMINOPHEN 325 MG TABLET ONE (10:54)
[2021-06-07 11:01] VITALS: BP 152/80; TEMP 96.5; O2SAT 99
--- NOTE | 2021-06-07 11:12 | OP ---
Date of Procedure: 06/07/2021 Surgeon: Ayala Shah MD Supervisor Pre Wave: None. Preoperative Diagnosis: Dysphonia. Postoperative Diagnosis: Dysphonia with vocal fold edema, but no evidence of submucosal cyst, no sig nificant nodularity, no evidence of any neoplastic mucosal or epithelial process. Indication For Procedure: Jose F Espinoza presented with complaint of hoarseness and fear of malig nant neoplasm due to her son's recent from throat cancer. Her flexible office laryngoscopy dem onstrated some vocal fold edema with suspicion for a submucosal cyst, but difficult to evaluate in th e office setting. The risks, benefits, and alternatives to the procedure were discussed with the pat ient who agreed to proceed. Description Of Procedure: The patient was brought to the operating room. She was placed under gener al anesthesia via oral endotracheal tube. Her gingiva was protected with a gauze and the Bettina-Ber i laryngoscope was fitted with the rigid 15 degree telescope and used to perform a direct laryngoscop y. The base of tongue, epiglottis, and piriform sinuses were all without any mucosal lesion. The ar ytenoid mucosa was moderately erythematous and mildly to moderately edematous. The false vocal fold appeared within normal limits. The true vocal folds appeared somewhat edematous. The laryngoscope w as placed in suspension and careful palpation of the vocal folds was made. There was no visible or p alpable mucosal cyst or nodule noted during this procedure and therefore no biopsy and no excision wa s performed. The Bettina-Burci was then removed and the Trace laryngoscope was used to provide a w ider global view of the larynx. The tip of the Trace was placed within the vallecula and placed i n suspension. The overall view of the larynx was unremarkable. In an attempt to obtain a direct wilber to of the vocal fold in its entirety, the endotracheal tube cuff was deflated and the endotracheal tu be was removed, however, the patient had immediate laryngospasm with complete closure of the vocal co rds. After a moment or two, the vocal cords did not relax and the endotracheal tube was gently repla kecia. The patient was ventilated and a second attempt was made with similar results of laryngospasm. Based on the overall view and obtained findings, it was felt to be unlikely that there was going to be a benefit from the paralysis in order to view of the interarytenoid region and therefore the proce dure was concluded. The patient was returned to care of anesthesia for awakening and extubation in t operating room, which proceeded without difficulty. Complications: None. Specimens: None. Blood Loss: None. Disposition: The patient will be discharged home later today in the care of family and follow up oriana Shah's office. In regard to findings, I suspect the hoarseness is likely due to vocal fold edema and due to the redness of the post cricoid region. I would suspect LPR as a contributing facto r to this edema and the patient can be treated as such with the proper voice therapy. ZAHRA/YOSELYN Voice ID: [id number] Report ID: [id number]
== END 2021-06-07 11:25 | disposition home or self-care (01) ==
LOC: OR 07:27
PROVIDERS: ATTEND Otolaryngology
PROC: 0CJS8ZZ Inspection of Larynx, Via Natural or Artificial Opening Endoscopic (ICD-10-PCS; principal; 2021-06-07 08:30)
DX: R49.0 Dysphonia (principal); J45.909 Unspecified asthma, uncomplicated; E11.9 Type 2 diabetes mellitus without complications; I10 Essential (primary) hypertension; E78.00 Pure hypercholesterolemia, unspecified; K21.9 Gastro-esophageal reflux disease without esophagitis; I50.9 Heart failure, unspecified; Z20.822 Contact with and (suspected) exposure to COVID-19
CPT/HCPCS: 93005; 82947 ×2; 31525; U0003; J2704; J0330; J2250; J3010 ×2; J7030; J2405; J0171; J2710